=== PATIENT | female | born 1965 | race Caucasian/White ===

== ENCOUNTER → 2023-04-16 12:38 | Outpatient (BNVA) | payer OTHER, MEDICAID, SELFPAY | PROVIDERS: Visit Provider Nurse Practitioner Family | DX: U07.1 COVID-19 (principal) | CPT/HCPCS: 87426 ==

== ENCOUNTER 2024-01-04 17:25 | Inpatient (IN) | payer OTHER, BC, MEDICAID, SELFPAY ==
[2024-01-04 17:30] VITALS: BP 181/72; PULSE 80; RESP 16; TEMP 37.6; O2SAT 95; BMI 36.0
--- NOTE | 2024-01-04 18:11 | W.ED.PSYCHS ---
HPI - Psych General: Chief Complaint: Psychiatric Symptoms Stated Complaint: MHE Time Seen by Provider: 01/04/24 17:42 History of Present Illness: 58-year-old female with a history of depression who was started on medication a couple months ago who presents the emergency room today with severe depression and a complaint that she does not want to live. She does not have an exact plan. But she says she lost her home and now has no place to go and does not have a job. A social scientist friend brought her here because she was concerned that she might hurt herself. Related Data Home Medications Medication Instructions Recorded Confirmed hydrochlorothiazide 12.5 mg tablet 12.5 mg PO DAILY 09/25/23 11/20/23 lisinopril 20 mg tablet 20 mg PO DAILY 09/25/23 11/20/23 Previous Rx's Medication Instructions Recorded doxycycline hyclate 100 mg capsule 100 mg PO BID 7 days #14 caps 04/17/23 nirmatrelvir 300 mg (150 mg See Rx Instructions PO PER PKG DIR 04/17/23 x2)-ritonavir 100 mg tablet,dose #30 tabs pack (Paxlovid) prednisone 20 mg tablet 40 mg (2 x 20 mg) PO daily #10 tabs 04/17/23 escitalopram oxalate 10 mg tablet 10 mg PO DAILY #30 tabs 11/20/23 Allergies Allergy/AdvReac Type Severity Reaction Status Date / Time No Known Allergies Allergy Verified 06/21/23 14:20 Review of Systems Narrative: Constitutional symptoms: Negative except as documented in HPI. Skin symptoms: Negative except as documented in HPI. Eye symptoms: Negative except as documented in HPI. ENMT symptoms: Negative except as documented in HPI. Respiratory symptoms: Negative except as documented in HPI. Cardiovascular symptoms: Negative except as documented in HPI. Gastrointestinal symptoms: Negative except as documented in HPI. Genitourinary symptoms: Negative except as documented in HPI. Musculoskeletal symptoms: Negative except as documented in HPI. Neurologic symptoms: Negative except as documented in HPI. Psychiatric symptoms: Negative except as documented in HPI. Endocrine symptoms: Negative except as documented in HPI. [facility] PFSH: Medical History (Updated 01/04/24 @ 19:37 by Deedee Walsh MD) Psychiatric care Physical Exam Narrative: EXAM NARRATIVE: General: Alert. no acute distress Skin: Warm, dry Head: Normocephalic, atraumatic. Neck: Supple, trachea midline. Eye: Extraocular movements are intact. Ears, nose, mouth and throat: Oral mucosa moist. Cardiovascular: Regular rate and rhythm, Normal peripheral perfusion. Respiratory: Lungs are clear to auscultation, respirations are non-labored, breath sounds are equal, Symmetrical chest wall expansion. Gastrointestinal: Soft, Nontender, Non distended, Normal bowel sounds. Musculoskeletal: Normal ROM, no deformity. Neurological: Alert and oriented to person, place, time, and situation, No focal neurological deficit observed. Psychiatric: Cooperative, depressed, expresses that she wants to but does not have a plan Course Vital Signs: Vital signs: Vital Signs Temperature 99.6 F 01/04/24 17:30 Pulse Rate 80 01/04/24 17:30 Respiratory Rate 16 01/04/24 17:30 Blood Pressure 181/72 01/04/24 17:30 Pulse Oximetry 95 01/04/24 17:30 Oxygen Delivery Me thod Room Air 01/04/24 17:30 MDM - Psych Medical Decision Making Differential diagnosis: Patient with reported depression and suicidal ideation. concerns for infection, alcohol intoxication, cardiac issues or other medical problems prior to psychiatric admission. Workup: labwork, ekg ordered to evaluate the pathologies and to clear the patient medically prior to psychiatric admission EKG: Time 1912. Rate 80. Normal sinus rhythm, No ST-T changes, no ectopy, normal MS & QRS intervals, This was reviewed and interpreted by myself the ER physician at 1917 Lab Review: Laboratory results were reviewed and interpreted by myself the emergency room physician. Lab review: - Medically cleared. - EKG shows no ischemic changes. - Blood alcohol level is negative, -Tylenol and salicylate levels are negative. - Drug screen is negative -Urinalysis and drug screen are pending at admission. - BUN and creatinine are within normal limits. Consultation: I spoke with Dr. Mukherjee who is on-call for psychiatry who agrees to admission. Assessment and plan: Depression Suicidal thoughts -Admission to neuropsychiatric unit for continued evaluation and treatment. - All lab work was reviewed and interpreted personally by myself, the ER physician - Evaluation and treatment of this problem were appropriate in the emergency setting Lab Data 01/04/24 18:14 01/04/24 18:14 Laboratory Results WBC 11.69 10^3/uL (3.29-11.43) H 01/04/24 18:14 RBC 5.06 10^6/uL (3.85-5.65) 01/04/24 18:14 Hgb 15.00 g/dL (11.27-16.99) 01/04/24 18:14 Hct 46.4 % (36-47) 01/04/24 18:14 MCV 91.7 fl (85-98) 01/04/24 18:14 MCH 29.6 pg (27-33) 01/04/24 18:14 MCHC 32.3 g/dL (30-55) 01/04/24 18:14 RDW 13.4 % (12.1-15.1) 01/04/24 18:14 Plt Count 352 10^3/cmm (157-399) 01/04/24 18:14 MPV 9.6 fL (7.4-10.4) 01/04/24 18:14 Neut % (Auto) 81.9 % 01/04/24 18:14 Lymph % (Auto) 9.9 % 01/04/24 18:14 Mitchell % (Auto) 7.4 % 01/04/24 18:14 Eos % (Auto) 0.3 % 01/04/24 18:14 Baso % (Auto) 0.3 % 01/04/24 18:14 Neut # (Auto) 9.56 10^3/uL (1.8-7.7) H 01/04/24 18:14 Lymph # (Auto) 1.2 10^3/uL (0.8-4.8) 01/04/24 18:14 Mitchell # (Auto) 0.9 10^3/uL (0.2-0.9) 01/04/24 18:14 Eos # (Auto) 0.0 10^3/uL (0.0-0.8) 01/04/24 18:14 Baso # (Auto) 0.0 10^3/uL (0.0-0.1) 01/04/24 18:14 Nucleated RBC % (auto) 0 % 01/04/24 18:14 Nucleated RBCs # 0.0 /100WBC 01/04/24 18:14 Sodium 140 mmol/L (136-145) 01/04/24 18:14 Potassium 3.6 mmol/L (3.5-5.1) 01/04/24 18:14 Chloride 102 mmol/L (98-107) 01/04/24 18:14 Carbon Dioxide 26 mmol/L (22-29) 01/04/24 18:14 Anion Gap 15.6 (5-19) 01/04/24 18:14 BUN 9 mg/dL (8-23) 01/04/24 18:14 Creatinine 0.8 mg/dL (0.5-0.9) 01/04/24 18:14 GFR Calculation 73.2 mL/min (90-130) L 01/04/24 18:14 Glucose 116 mg/dL (65-115) H 01/04/24 18:14 Calculated Osmolality 290 mOsm/kg (285-295) 01/04/24 18:14 Calcium 8.4 mg/dL (8.5-10.5) L 01/04/24 18:14 Total Bilirubin 0.4 mg/dL (0.15-1.2) 01/04/24 18:14 AST 10 U/L (0-32) 01/04/24 18:14 ALT 10 U/L (0-33) 01/04/24 18:14 Alkaline Phosphatase 75 U/L (35-105) 01/04/24 18:14 Total Protein 5.9 g/dL (6.6-8.7) L 01/04/24 18:14 Albumin 4.0 g/dL (3.5-5.2) 01/04/24 18:14 Globulin 1.9 g/dL (1.3-4.6) 01/04/24 18:14 TSH 3.04 uIU/mL (0.27-4.20) 01/04/24 18:14 Salicylates 0.5 mg/dL (3-10) L 01/04/24 18:14 Acetaminophen < 5.0 ug/mL (10-30) L 01/04/24 18:14 Ethyl Alcohol < 10 mg/dL (0-10) 01/04/24 18:14 No radiology studies performed this visit Discharge Plan Discharge Patient Disposition: Admitted As Inpatient Clinical Impression: Depression, Suicidal ideation Condition: Stable Coding Level of Care Code ED Publications Inspector for Wanda Cha
[2024-01-04 18:19] LABS: Basophils % 0.3 %; Eosinophils % 0.3 %; Hematocrit 46.4 % (36-47); Lymphocytes # 1.2 10^3/uL (0.8-4.8); Lymphocytes % 9.9 %; Mean Corpuscular HGB Conc 32.3 g/dL (30-55); Mean Corpuscular Hemoglobin 29.6 pg (27-33); Mean Corpuscular Volume 91.7 fl (85-98); Mean Platelet Volume 9.6 fL (7.4-10.4); Monocytes # 0.9 10^3/uL (0.2-0.9); Monocytes % 7.4 %; Neutrophils # 9.56 10^3/uL (1.8-7.7); Neutrophils % 81.9 %; Nucleated Red Blood Cells % 0 %; Platelet Count 352 10^3/cmm (157-399); Red Blood Count 5.06 10^6/uL (3.85-5.65); Red Cell Distribution Width 13.4 % (12.1-15.1); White Blood Count 11.69 10^3/uL (3.29-11.43)
--- NOTE | 2024-01-04 18:35 | PC.NURSE ---
96 hr rights reviewed with patient @[phone] with assistance of [place] cyber security instructor Daniel. All education reviewed with patient. No verbalized questions or concerns at this time Patient copy left @bedside with patient. Patient provided a sandwich, pudding and soda.
--- NOTE | 2024-01-04 19:13 | ECG_ITS ---
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 Measurements Intervals [place] Rate: 80 P: 66 WV: 150 QRS: 54 QRSD: 90 T: 70 QT: 391 QTc: 451 Interpretive Statements SINUS RHYTHM NONSPECIFIC ST & T-WAVE ABNORMALITY Compared to ECG 03/27/2016 04:54:58 No significant changes Electronically Signed On 01-04-2024 21:59:36 CUSTODIAL OFFICER by Ayana Caro M.D. [email or web address]
[2024-01-04 19:29] LABS: Alanine Aminotransferase 10 U/L (0-33); Alkaline Phosphatase 75 U/L (35-105); Anion Gap 15.6 (5-19); Aspartate Amino Transferase 10 U/L (0-32); Blood Urea Nitrogen 9 mg/dL (8-23); Calcium 8.4 mg/dL (8.5-10.5); Carbon Dioxide 26 mmol/L (22-29); Chloride 102 mmol/L (98-107); Creatinine Clr Calc Pharmacy 92.8984; Globulin 1.9 g/dL (1.3-4.6); Glomerular Filtration Rate 73.2 mL/min (90-130); Glucose 116 mg/dL (65-115); Osmolality Calculated 290 mOsm/kg (285-295); Potassium 3.6 mmol/L (3.5-5.1); Salicylate 0.5 mg/dL (3-10); Sodium 140 mmol/L (136-145); Thyroid Stimulating Hormone 3.04 uIU/mL (0.27-4.20); Total Bilirubin 0.4 mg/dL (0.15-1.2); Total Protein 5.9 g/dL (6.6-8.7)
[2024-01-04 19:37] LABS: Acetaminophen < 5.0 ug/mL (10-30); Alcohol Level < 10 mg/dL (0-10)
[2024-01-04 20:28] VITALS: BP 179/86; PULSE 72; RESP 15; O2SAT 95
[2024-01-04 20:40] VITALS: BP 176/81; PULSE 73; RESP 18; TEMP 37.4; O2SAT 94
[2024-01-04 20:57] VITALS: BP 176/81; PULSE 73; RESP 18; TEMP 37.4; O2SAT 94
[2024-01-04 23:30] LABS: Bilirubin Urine Negative (Negative); Blood Urine 1+ (Negative); Glucose Urine UA Negative (Normal); Ketones Urine Negative (Negative); Leukocyte Esterase Urine 2+ (Negative); Nitrate Urine Negative (Negative); Protein Urine 1+ (Negative); Specific Gravity, Urine 1.022 (1.005-1.030); Urine Appearance Cloudy (CLEAR); Urine Color Yellow (Yellow); pH Urine 5.5 (5-7)
[2024-01-04 23:35] LABS: Bacteria Urine 4+ /hpf; Squamous Epithelial Cell Urine 0-5 /hpf (0-5); WBC Urine 21-50 /hpf (0-5)
[2024-01-04 23:42] LABS: Add Urine Culture? Yes; Amphetamines Screen Urine Positive (Negative); Barbiturates Screen Urine Negative (Negative); Benzodiazepines Screen Urine Negative (Negative); Cocaine Screen Urine Negative (Negative); Opiate Screen Urine Negative (Negative); PCP Screen Urine Negative (Negative); THC Screen Urine Positive (Negative)
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
[2024-01-05 06:00] VITALS: BP 175/71; PULSE 68; RESP 18; TEMP 37.7; O2SAT 94
--- NOTE | 2024-01-05 09:08 | PC.OT ---
OT EVALUATION ATTEMPTED; PATIENT IS SLEEPING SOUNDLY/SNORING.
[2024-01-05] MEDS: escitalopram 10 mg Tablet PO ×2 (09:28→16:15)
[2024-01-05] MEDS: lisinopril 20 mg Tablet PO (09:28)
[2024-01-05] MEDS: hydroCHLOROthiazide 25 mg Tablet 12.5 MG PO (09:28)
[2024-01-05] MEDS: loperamide 2 mg Capsule PO ×2 (09:34→21:35)
[2024-01-05 14:00] VITALS: BP 137/75; PULSE 62; RESP 18; TEMP 37.7; O2SAT 94
[2024-01-05 16:57] LABS: Influenza A by IFA Negative (Negative); Influenza B by IFA Negative (Negative)
[2024-01-05 18:31] LABS: Adenovirus Not Detected (NOT DETECT); Chlamydia Pneumoniae Not Detected (NOT DETECT); Coronavirus 229E,HKU1,NL63,OC4 Not Detected (NOT DETECT); Human Metapneumovirus Not Detected (NOT DETECT); Human Rhinovirus/Enterovirus Not Detected (NOT DETECT); Influenza A Not Detected (NOT DETECT); Influenza A H1 Not Detected (NOT DETECT); Influenza A H1-2009 Not Detected (NOT DETECT); Influenza A H3 Not Detected (NOT DETECT); Influenza B Not Detected (NOT DETECT); Mycoplasma Pneumoniae Not Detected (NOT DETECT); Parainfluenza Virus Type 1 Not Detected (NOT DETECT); Parainfluenza Virus Type 2 Not Detected (NOT DETECT); Parainfluenza Virus Type 3 Not Detected (NOT DETECT); Parainfluenza Virus Type 4 Not Detected (NOT DETECT); Respiratory Syncytial Virus A Not Detected (NOT DETECT); Respiratory Syncytial Virus B Not Detected (NOT DETECT); SARS-COV-2 Not Detected (NOT DETECT)
[2024-01-05] MEDS: nicotine 4 mg lozenge MUCOUS MEM (21:35)
[2024-01-05 22:00] VITALS: BP 151/72; PULSE 59; RESP 17; TEMP 36.9; O2SAT 95
[2024-01-06 06:00] VITALS: BP 138/67; PULSE 56; RESP 16; TEMP 36.7; O2SAT 98
--- NOTE | 2024-01-06 07:42 | P.NPUPN_ITS ---
Subjective NPU 2 Subjective: Patient presented today reporting that she is feeling a little better. She denied any impact in a negative way from the increase of Lexapro to 20 mg p.o. daily. We continue to discuss recovery related issues and endorsed need for us to figure out how she is going to manage sobriety moving forward. She denied any side effects to the medication. Mental Status Exam 2 MSE Comments: This is an obese white female looking older than her stated age in hospital scrubs with poor grooming and limited eye contact. She has poor dentition. No abnormal movements except for psychomotor retardation. Mostly cooperative with exam in mild to moderate distress. Speech was decreased rate and volume. Mood described as depressed, affect congruent. Thought process organized. Thought content: Patient endorsed some suicidal ideation in the form of mostly passive wish, no homicidal ideation, there were no delusions reported or noted, she denied any auditory or visual hallucinations.Marilee expresses suicidal ideation, wanting to go to sleep and not wake up. She has been feeling anxious due to lack of food, water, and electricity. She reports having nightmares and flashbacks, mostly about recent events. She denies any self-injurious behavior or hallucinations. Attention and concentration were intact and memory was mostly reliable but no more formally tested. She is alert and oriented x 3. Insight, judgment and impulse control are all impaired. Vitals/I&O/Wt Last Vital Signs Temp 98.1 F 01/06/24 06:00 Pulse 56 L 01/06/24 06:00 Resp 16 01/06/24 06:00 BP 138/67 01/06/24 06:00 Pulse Ox 98 01/06/24 06:00 O2 Del Method Room Air 01/04/24 20:43 Weight last 48 hrs Weight 104.326 kg Data NPU 01/04/24 18:14 01/04/24 18:14 A&P Assessment and plan (1) Substance dependence: (2) Suicidal ideation: (3) Major depression, recurrent: (4) PTSD (post-traumatic stress disorder): (5) Methamphetamine use disorder, severe: Plan This is a 58-year-old white female with a long history of addiction and more recent history of mental health challenges who presented with suicidal ideation. Marilee is in a state of acute psychological distress, with substantial psychosocial stressors contributing to her mental health. She is currently experiencing homelessness, unemployment, and lack of basic necessities. She has been experiencing depressive symptoms and suicidal ideation. She has been on Lexapro for a brief duration, which has recently been increased in dosage. 1. Continue current medication. Increased Lexapro to 20 mg p.o. daily. 2. Continue every 15 minute checks for safety. 3. Encourage individual, group and milieu therapies. 4. Encourage sober living treatment after discharge at the highest level care to which she is willing to commit. 5. Obtain collateral information. Involuntary Hold Information 2 96 Hour Hold: 96 Hour Involuntary Admission: Yes 96 Hour Hold Ending Date: 01/10/24 96 Hour Hold Ending Time: 18:00 Other Hold: Hold End Date: 01/10/24 Attestations NPU 2 Medical Necessity Statement*: Inpatient hospitalization is medically necessary and the clinically appropriate intervention at this time. We will monitor/initiate medications and make changes as indicated. Likely length of stay 3-5 days. Coding Level of Care Code Acute Code for [facility] Diagnoses Substance dependence F19.20 Suicidal ideation R45.851 Major depression, recurrent F33.9 PTSD (post-traumatic stress disorder) F43.10 Methamphetamine use disorder, severe F15.20
[2024-01-06] MEDS: loperamide 2 mg Capsule PO ×2 (09:55→21:45)
[2024-01-06] MEDS: lisinopril 20 mg Tablet PO (09:55)
[2024-01-06] MEDS: escitalopram 10 mg Tablet 20 MG PO (09:56)
[2024-01-06] MEDS: hydroCHLOROthiazide 25 mg Tablet 12.5 MG PO (09:58)
[2024-01-06] MEDS: nicotine 4 mg lozenge MUCOUS MEM ×2 (10:18→21:45)
[2024-01-06 14:00] VITALS: BP 137/56; PULSE 55; RESP 16; TEMP 36.8; O2SAT 93
[2024-01-06 22:00] VITALS: BP 108/45; PULSE 56; RESP 16; TEMP 37.2; O2SAT 94
[2024-01-07 06:00] VITALS: BP 132/52; PULSE 55; RESP 16; TEMP 36.9; O2SAT 94
--- NOTE | 2024-01-07 07:51 | P.NPUPN_ITS ---
Subjective NPU 2 Subjective: Patient presented today reporting that she is not really sure why she is feeling so lethargic. She reports she does have an upset stomach and reports that is why she has been lying in bed. Otherwise she reports she is tolerating the increase in her Lexapro. She continues to be somewhat resistant to talking about her addiction. Staff report her being isolative still. She denied any side effects to her medication. Mental Status Exam 2 MSE Comments: This is an obese white female looking older than her stated age in hospital scrubs with poor grooming and limited eye contact. She has poor dentition. No abnormal movements except for psychomotor retardation. Mostly cooperative with exam in mild to moderate distress. Speech was decreased rate and volume. Mood described as depressed, affect congruent and subdued. Thought process organized. Thought content: Patient endorsed some suicidal ideation in the form of mostly passive wish, no homicidal ideation, there were no delusions reported or noted, she denied any auditory or visual hallucinations.Marilee expresses suicidal ideation, wanting to go to sleep and not wake up. She has been feeling anxious due to lack of food, water, and electricity. She reports having nightmares and flashbacks, mostly about recent events. She denies any self-injurious behavior or hallucinations. Attention and concentration were intact and memory was mostly reliable but no more formally tested. She is alert and oriented x 3. Insight, judgment and impulse control are all impaired. Vitals/I&O/Wt Last Vital Signs Temp 98.4 F 01/07/24 06:00 Pulse 55 L 01/07/24 06:00 Resp 16 01/07/24 06:00 BP 132/52 01/07/24 06:00 Pulse Ox 94 01/07/24 06:00 O2 Del Method Room Air 01/04/24 20:43 01/06/24 01/07/24 01/07/24 22:59 06:59 14:59 Intake Total 480 / 480 Balance 480 / 480 Weight last 48 hrs Weight 105.37 kg Data NPU 01/04/24 18:14 01/04/24 18:14 Micro: Microbiology 01/04/24 23:20 Urine Culture - Final Urine,Clean Catch Microbiology 01/04/24 23:20 Urine,Clean Catch Urine Culture - Final A&P Assessment and plan (1) Substance dependence: (2) Suicidal ideation: (3) Major depression, recurrent: (4) PTSD (post-traumatic stress disorder): (5) Methamphetamine use disorder, severe: Plan This is a 58-year-old white female with a long history of addiction and more recent history of mental health challenges who presented with suicidal ideation. Marilee is in a state of acute psychological distress, with substantial psychosocial stressors contributing to her mental health. She is currently experiencing homelessness, unemployment, and lack of basic necessities. She has been experiencing depressive symptoms and suicidal ideation. She has been on Lexapro for a brief duration, which has recently been increased in dosage. 1. Continue current medication. Increased Lexapro to 20 mg p.o. daily. 2. Continue every 15 minute checks for safety. 3. Encourage individual, group and milieu therapies. 4. Encourage sober living treatment after discharge at the highest level care to which she is willing to commit. 5. Obtain collateral information. Involuntary Hold Information 2 96 Hour Hold: 96 Hour Involuntary Admission: Yes 96 Hour Hold Ending Date: 01/10/24 96 Hour Hold Ending Time: 18:00 Other Hold: Hold End Date: 01/10/24 Attestations NPU 2 Medical Necessity Statement*: Inpatient hospitalization is medically necessary and the clinically appropriate intervention at this time. We will monitor/initiate medications and make changes as indicated. Likely length of stay 2-4 days. Coding Level of Care Code Acute Code for [facility] Fwd Diagnoses Substance dependence F19.20 Suicidal ideation R45.851 Major depression, recurrent F33.9 PTSD (post-traumatic stress disorder) F43.10 Methamphetamine use disorder, severe F15.20
[2024-01-07] MEDS: lisinopril 20 mg Tablet PO (08:38)
[2024-01-07] MEDS: escitalopram 10 mg Tablet 20 MG PO (08:38)
[2024-01-07] MEDS: hydroCHLOROthiazide 25 mg Tablet 12.5 MG PO (08:38)
[2024-01-07] MEDS: ondansetron 4 MG Tablet PO (08:49)
[2024-01-07 14:00] VITALS: BP 125/68; PULSE 56; RESP 16; TEMP 37; O2SAT 94
[2024-01-07 21:19] VITALS: BP 139/70; PULSE 56; RESP 16; O2SAT 94
[2024-01-08 06:00] VITALS: BP 167/82; PULSE 53; RESP 16; O2SAT 95
[2024-01-08] MEDS: hydroCHLOROthiazide 25 mg Tablet 12.5 MG PO (08:32)
[2024-01-08] MEDS: escitalopram 10 mg Tablet 20 MG PO (08:32)
[2024-01-08] MEDS: lisinopril 20 mg Tablet PO (08:32)
[2024-01-08] MEDS: loperamide 2 mg Capsule PO (08:48)
[2024-01-08 14:00] VITALS: BP 121/69; PULSE 86; RESP 16; TEMP 36.6; O2SAT 98
--- NOTE | 2024-01-08 16:41 | PC.NURSE ---
Patient's friend, who is on her HIPAA form, talked with this RN about her concerns for Marilee. She stated she believes Juhi has been utilizing methamphetamine and that she knows for sure that she is using marijuana. However, she believes Juhi has been having increased memory issues and will forget having conversations and repeat them as if she had never talked about them before. Her friend disclosed that Juhi's mother and maternal grandmother both were diagnosed with dementia, and the grandmother has since passed. 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 The friend expressed her concerns for Juhi living by herself. She says juhi was living in public housing and that all she had to do to keep it was to pay the electric bill. Apparently Juhi gave plasma, got enough money for her electric bill, but then chose to send the money to a man online.
[2024-01-08 20:09] VITALS: BP 169/52; PULSE 59; RESP 17; TEMP 37.1; O2SAT 93
--- NOTE | 2024-01-08 20:59 | P.NPUPN_ITS ---
Subjective NPU 2 Subjective: Patient presented today reporting that she is doing fine. However she continues to be fairly isolative and staying in her bed per staff reports and direct observation. She reports that she is feeling kind of crappy but tends to downplay symptoms and focus on wanting to go home. Attempted to have a meaningful discussion about her addiction and the role it likely is playing in her symptoms but she was not seeming open to that interaction. She denied any side effects to her medication. Mental Status Exam 2 MSE Comments: This is an obese white female looking older than her stated age in hospital scrubs with poor grooming and limited eye contact. She has poor dentition. No abnormal movements except for psychomotor retardation. Mostly cooperative with exam in mild to moderate distress. Speech was decreased rate and volume. Mood described as depressed, affect congruent and subdued. Thought process organized. Thought content: Patient endorsed some suicidal ideation in the form of mostly passive wish, no homicidal ideation, there were no delusions reported or noted, she denied any auditory or visual hallucinations.Marilee expresses suicidal ideation, wanting to go to sleep and not wake up. She has been feeling anxious due to lack of food, water, and electricity. She reports having nightmares and flashbacks, mostly about recent events. She denies any self-injurious behavior or hallucinations. Attention and concentration were intact and memory was mostly reliable but no more formally tested. She is alert and oriented x 3. Insight, judgment and impulse control are all impaired. Vitals/I&O/Wt Last Vital Signs Temp 98.8 F 01/08/24 20:09 Pulse 59 L 01/08/24 20:09 Resp 17 01/08/24 20:09 BP 169/52 01/08/24 20:09 Pulse Ox 93 01/08/24 20:09 O2 Del Method Room Air 01/08/24 20:09 Weight last 48 hrs Weight 105.37 kg Data NPU 01/04/24 18:14 01/04/24 18:14 A&P Assessment and plan (1) Substance dependence: (2) Suicidal ideation: (3) Major depression, recurrent: (4) PTSD (post-traumatic stress disorder): (5) Methamphetamine use disorder, severe: Plan This is a 58-year-old white female with a long history of addiction and more recent history of mental health challenges who presented with suicidal ideation. Marilee is in a state of acute psychological distress, with substantial psychosocial stressors contributing to her mental health. She is currently experiencing homelessness, unemployment, and lack of basic necessities. She has been experiencing depressive symptoms and suicidal ideation. She has been on Lexapro for a brief duration, which has recently been increased in dosage. 1. Continue current medication. Increased Lexapro to 20 mg p.o. daily. 2. Continue every 15 minute checks for safety. 3. Encourage individual, group and milieu therapies. 4. Encourage sober living treatment after discharge at the highest level care to which she is willing to commit. 5. Obtain collateral information. Involuntary Hold Information 2 96 Hour Hold: 96 Hour Involuntary Admission: Yes 96 Hour Hold Ending Date: 01/10/24 96 Hour Hold Ending Time: 18:00 Other Hold: Hold End Date: 01/10/24 Attestations NPU 2 Medical Necessity Statement*: Inpatient hospitalization is medically necessary and the clinically appropriate intervention at this time. We will monitor/initiate medications and make changes as indicated. Likely length of stay 2-4 days. Coding Level of Care Code Acute Code for [facility] Fwd Diagnoses Substance dependence F19.20 Suicidal ideation R45.851 Major depression, recurrent F33.9 PTSD (post-traumatic stress disorder) F43.10 Methamphetamine use disorder, severe F15.20
[2024-01-09 06:00] VITALS: BP 160/73; PULSE 54; RESP 18; TEMP 37; O2SAT 94
[2024-01-09] MEDS: lisinopril 20 mg Tablet PO (09:16)
[2024-01-09] MEDS: hydroCHLOROthiazide 25 mg Tablet 12.5 MG PO (09:16)
[2024-01-09] MEDS: nicotine 4 mg lozenge MUCOUS MEM (09:16)
[2024-01-09] MEDS: escitalopram 10 mg Tablet 20 MG PO (09:16)
[2024-01-09] MEDS: ondansetron 4 MG Tablet PO (13:40)
[2024-01-09] MEDS: loperamide 2 mg Capsule PO (13:40)
[2024-01-09 13:45] VITALS: BP 163/78; PULSE 58; RESP 16; TEMP 36.9; O2SAT 95
--- NOTE | 2024-01-09 17:43 | P.NPUPN_ITS ---
Subjective NPU 2 Subjective: Patient presented today reporting that she is doing okay. She continues to be isolative per staff reports and direct observation. She spends a lot of time in her bed. She reports that she has been working with the social work team for possible residential options for discharge given the fact that she is homeless. Shelters have been part of the conversation but also looking at other possible options. She denied any side effects of the medication. Mental Status Exam 2 MSE Comments: This is an obese white female looking older than her stated age in hospital scrubs with poor grooming and limited eye contact. She has poor dentition. No abnormal movements except for psychomotor retardation. Mostly cooperative with exam in mild to moderate distress. Speech was decreased rate and volume. Mood described as better I guess, affect remained looking sad and subdued. Thought process organized. Thought content: Patient endorsed some suicidal ideation in the form of mostly passive wish, no homicidal ideation, there were no delusions reported or noted, she denied any auditory or visual hallucinations.Marilee expresses suicidal ideation, wanting to go to sleep and not wake up. She has been feeling anxious due to lack of food, water, and electricity. She reports having nightmares and flashbacks, mostly about recent events. She denies any self-injurious behavior or hallucinations. Attention and concentration were intact and memory was mostly reliable but no more formally tested. She is alert and oriented x 3. Insight, judgment and impulse control are all impaired. Vitals/I&O/Wt Last Vital Signs Temp 98.4 F 01/09/24 13:45 Pulse 58 L 01/09/24 13:45 Resp 16 01/09/24 13:45 BP 163/78 01/09/24 13:45 Pulse Ox 95 01/09/24 13:45 O2 Del Method Room Air 01/09/24 13:45 Data NPU 01/04/24 18:14 01/04/24 18:14 A&P Assessment and plan (1) Substance dependence: (2) Suicidal ideation: (3) Major depression, recurrent: (4) PTSD (post-traumatic stress disorder): (5) Methamphetamine use disorder, severe: Plan This is a 58-year-old white female with a long history of addiction and more recent history of mental health challenges who presented with suicidal ideation. Marilee is in a state of acute psychological distress, with substantial psychosocial stressors contributing to her mental health. She is currently experiencing homelessness, unemployment, and lack of basic necessities. She has been experiencing depressive symptoms and suicidal ideation. She has been on Lexapro for a brief duration, which has recently been increased in dosage. 1. Continue current medication. Increased Lexapro to 20 mg p.o. daily. 2. Continue every 15 minute checks for safety. 3. Encourage individual, group and milieu therapies. 4. Encourage sober living treatment after discharge at the highest level care to which she is willing to commit. 5. Working on possible discharge options that would hopefully include addiction treatment. Involuntary Hold Information 2 96 Hour Hold: 96 Hour Involuntary Admission: Yes 96 Hour Hold Ending Date: 01/10/24 96 Hour Hold Ending Time: 18:00 Other Hold: Hold End Date: 01/10/24 Attestations NPU 2 Medical Necessity Statement*: Inpatient hospitalization is medically necessary and the clinically appropriate intervention at this time. We will monitor/initiate medications and make changes as indicated. Likely length of stay 2-4 days. Coding Level of Care Code Acute Code for [facility] Fwd Diagnoses Substance dependence F19.20 Suicidal ideation R45.851 Major depression, recurrent F33.9 PTSD (post-traumatic stress disorder) F43.10 Methamphetamine use disorder, severe F15.20
[2024-01-09 20:23] VITALS: BP 171/70; PULSE 60; RESP 18; TEMP 36.7; O2SAT 93
[2024-01-10 06:00] VITALS: BP 144/71; PULSE 54; RESP 16; TEMP 37; O2SAT 94
[2024-01-10] MEDS: lisinopril 20 mg Tablet PO (08:56)
[2024-01-10] MEDS: hydroCHLOROthiazide 25 mg Tablet 12.5 MG PO (08:56)
[2024-01-10] MEDS: escitalopram 10 mg Tablet 20 MG PO (08:56)
[2024-01-10 14:00] VITALS: BP 132/65; PULSE 58; RESP 18; TEMP 36.6; O2SAT 93
--- NOTE | 2024-01-10 15:48 | W.PM.NPUPNS ---
Subjective NPU Subjective: Patient presented today reporting that she is doing all right. She endorsed a desire to leave as soon as she can but also acknowledged the fact that she does not have a place to go. She is working with the social work team looking at options for where she might go. We discussed the importance of her having an organized plan to discharge so as to not fall back into addictive behaviors or return to the hospital because she does not have a way to survive outside of the hospital. She denied any side effects of medication. Mental Status Exam MSE Comments: This is an obese white female looking older than her stated age in hospital scrubs with poor grooming and limited eye contact. She has poor dentition. No abnormal movements except for psychomotor retardation. Mostly cooperative with exam in mild to moderate distress. Speech was decreased rate and volume. Mood described as better I guess, affect remained looking sad and subdued. Thought process organized. Thought content: Patient endorsed some suicidal ideation in the form of mostly passive wish, no homicidal ideation, there were no delusions reported or noted, she denied any auditory or visual hallucinations.Marilee expresses suicidal ideation, wanting to go to sleep and not wake up. She has been feeling anxious due to lack of food, water, and electricity. She reports having nightmares and flashbacks, mostly about recent events. She denies any self-injurious behavior or hallucinations. Attention and concentration were intact and memory was mostly reliable but no more formally tested. She is alert and oriented x 3. Insight, judgment and impulse control are all impaired. Vitals/I&O/Wt Last Vital Signs Temp 98 F 01/10/24 14:00 Pulse 58 L 01/10/24 14:00 Resp 18 01/10/24 14:00 BP 132/65 01/10/24 14:00 Pulse Ox 93 01/10/24 14:00 O2 Del Method Room Air 01/09/24 13:45 Data NPU 01/04/24 18:14 01/04/24 18:14 A&P Assessment and plan (1) Substance dependence: (2) Suicidal ideation: (3) Major depression, recurrent: (4) PTSD (post-traumatic stress disorder): (5) Methamphetamine use disorder, severe: Plan This is a 58-year-old white female with a long history of addiction and more recent history of mental health challenges who presented with suicidal ideation. Marilee is in a state of acute psychological distress, with substantial psychosocial stressors contributing to her mental health. She is currently experiencing homelessness, unemployment, and lack of basic necessities. She has been experiencing depressive symptoms and suicidal ideation. She has been on Lexapro for a brief duration, which has recently been increased in dosage. 1. Continue current medication. Increased Lexapro to 20 mg p.o. daily. 2. Continue every 15 minute checks for safety. 3. Encourage individual, group and milieu therapies. 4. Encourage sober living treatment after discharge at the highest level care to which she is willing to commit. 5. Working on possible discharge options that would hopefully include addiction treatment. Involuntary Hold Information 96 Hour Hold: 96 Hour Involuntary Admission: Yes 96 Hour Hold Ending Date: 01/10/24 96 Hour Hold Ending Time: 18:00 Other Hold: Hold End Date: 01/10/24 Attestations U Medical Necessity Statement*: Inpatient hospitalization is medically necessary and the clinically appropriate intervention at this time. We will monitor/initiate medications and make changes as indicated. Likely length of stay 1-3 days. Coding Level of Care Code Acute Code for [facility] Fwd Diagnoses Substance dependence F19.20 Suicidal ideation R45.851 Major depression, recurrent F33.9 PTSD (post-traumatic stress disorder) F43.10 Methamphetamine use disorder, severe F15.20
[2024-01-10] MEDS: ondansetron 4 MG Tablet PO (17:56)
[2024-01-10 20:11] VITALS: BP 131/54; PULSE 57; RESP 18; TEMP 36.8; O2SAT 94
[2024-01-11 06:00] VITALS: BP 125/66; PULSE 68; RESP 16; TEMP 37.2; O2SAT 96
[2024-01-11] MEDS: escitalopram 10 mg Tablet 20 MG PO (08:25)
[2024-01-11] MEDS: hydroCHLOROthiazide 25 mg Tablet 12.5 MG PO (08:26)
[2024-01-11] MEDS: lisinopril 20 mg Tablet PO (08:26)
[2024-01-11] MEDS: OLANZapine 5 mg ODT PO (12:35)
[2024-01-11 14:00] VITALS: BP 107/51; PULSE 51; RESP 18; TEMP 37.1; O2SAT 93
[2024-01-11] MEDS: nicotine 4 mg lozenge MUCOUS MEM (14:55)
--- NOTE | 2024-01-11 17:17 | P.NPUPN_ITS ---
Subjective NPU 2 Subjective: Patient presented today feeling very frustrated about the 21-day hold extension. We had a lengthy conversation about the purpose of the extension. We discussed her meeting with [facility] tomorrow and that we are just trying to make sure that we have no situation where she is not really here in the hospital when they make their decision. She endorsed that she understood what she was still tearful. She denied any problems with her medications or any side effects of the medication. Mental Status Exam 2 MSE Comments: This is an obese white female looking older than her stated age in hospital scrubs with poor grooming and limited eye contact. She has poor dentition. No abnormal movements except for psychomotor retardation. Mostly cooperative with exam in mild to moderate distress. Speech was decreased rate and volume. Mood described as better I guess, affect remained looking sad and subdued. Thought process organized. Thought content: Patient endorsed some suicidal ideation in the form of mostly passive wish, no homicidal ideation, there were no delusions reported or noted, she denied any auditory or visual hallucinations.Marilee expresses suicidal ideation, wanting to go to sleep and not wake up. She has been feeling anxious due to lack of food, water, and electricity. She reports having nightmares and flashbacks, mostly about recent events. She denies any self-injurious behavior or hallucinations. Attention and concentration were intact and memory was mostly reliable but no more formally tested. She is alert and oriented x 3. Insight, judgment and impulse control are all impaired. Vitals/I&O/Wt Last Vital Signs Temp 98.8 F 01/11/24 14:00 Pulse 51 L 01/11/24 14:00 Resp 18 01/11/24 14:00 BP 107/51 01/11/24 14:00 Pulse Ox 93 01/11/24 14:00 O2 Del Method Room Air 01/11/24 14:00 Data NPU 01/04/24 18:14 01/04/24 18:14 A&P Assessment and plan (1) Substance dependence: (2) Suicidal ideation: (3) Major depression, recurrent: (4) PTSD (post-traumatic stress disorder): (5) Methamphetamine use disorder, severe: Plan This is a 58-year-old white female with a long history of addiction and more recent history of mental health challenges who presented with suicidal ideation. Marilee is in a state of acute psychological distress, with substantial psychosocial stressors contributing to her mental health. She is currently experiencing homelessness, unemployment, and lack of basic necessities. She has been experiencing depressive symptoms and suicidal ideation. She has been on Lexapro for a brief duration, which has recently been increased in dosage. 1. Continue current medication. Increased Lexapro to 20 mg p.o. daily. 2. Continue every 15 minute checks for safety. 3. Encourage individual, group and milieu therapies. 4. Encourage sober living treatment after discharge at the highest level care to which she is willing to commit. 5. Working on possible discharge options that would hopefully include addiction treatment. [facility] to come and interview tomorrow. Involuntary Hold Information 2 96 Hour Hold: 96 Hour Involuntary Admission: Yes 96 Hour Hold Ending Date: 01/10/24 96 Hour Hold Ending Time: 18:00 Other Hold: Hold End Date: 01/10/24 Attestations NPU 2 Medical Necessity Statement*: Inpatient hospitalization is medically necessary and the clinically appropriate intervention at this time. We will monitor/initiate medications and make changes as indicated. Likely length of stay 1-2 days. Coding Level of Care Code Acute Code for [facility] Fwd Diagnoses Substance dependence F19.20 Suicidal ideation R45.851 Major depression, recurrent F33.9 PTSD (post-traumatic stress disorder) F43.10 Methamphetamine use disorder, severe F15.20
[2024-01-11 19:38] VITALS: BP 114/49; PULSE 51; RESP 18; TEMP 36.7; O2SAT 95
[2024-01-11 21:55] VITALS: BP 114/49; PULSE 51; RESP 18; TEMP 36.7; O2SAT 95
[2024-01-12 06:00] VITALS: BP 116/49; PULSE 60; RESP 16; TEMP 37.2; O2SAT 95
[2024-01-12] MEDS: hydroCHLOROthiazide 25 mg Tablet 12.5 MG PO (08:24)
[2024-01-12] MEDS: lisinopril 20 mg Tablet PO (08:24)
[2024-01-12] MEDS: escitalopram 10 mg Tablet 20 MG PO (08:24)
[2024-01-12 11:31] VITALS: BP 116/49; PULSE 60; RESP 16; TEMP 37.2; O2SAT 95
--- NOTE | 2024-01-12 11:36 | W.PM.NPUDCS ---
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 Squamous Epith Cells 0-5 /hpf (0-5) 01/04/24 23:20 Amorphous Sediment Not Reportable 01/04/24 23:20 Urine Bacteria 4+ /hpf (NONE) H 01/04/24 23:20 Hyaline Casts 3.30 /lpf 01/04/24 23:20 Salicylates 0.5 mg/dL (3-10) L 01/04/24 18:14 Urine Opiates Scre en Negative ng/mL (N egative) 01/04/24 23:20 Acetaminophen < 5.0 ug/mL (10-3 0) L 01/04/24 18:14 Ur Barbiturates Sc reen Negative ng/mL (N egative) 01/04/24 23:20 Ur Phencyclidine S crn Negative ng/mL (N egative) 01/04/24 23:20 Ur Amphetamines Sc reen Positive ng/mL (N egative) H 01/04/24 23:20 U Benzodiazepines Scrn Negative ng/mL (N egative) 01/04/24 23:20 Urine Cocaine Scre en Negative ng/mL (N egative) 01/04/24 23:20 U Marijuana (THC) Screen Positive ng/mL (N egative) H 01/04/24 23:20 Ethyl Alcohol < 10 mg/dL (0-10) 01/04/24 18:14 Coronavirus 229E ( PCR) Not detected (NO T DETECT) 01/05/24 16:13 Influenza Type A A g Negative (Negati ve) 01/05/24 16:13 Influenza Type B A g Negative (Negati ve) 01/05/24 16:13 SARS-CoV-2 (PCR) Not detected (NO T DETECT) 01/05/24 16:13 Vitals: Last Vital Signs Temp 98.9 F 01/12/24 11:31 Pulse 60 01/12/24 11:31 Resp 16 01/12/24 11:31 BP 116/49 01/12/24 11:31 Pulse Ox 95 01/12/24 11:31 O2 Del Method Room Air 01/12/24 06:00 Discharge Plan Discharge Patient Disposition: Home Condition: Stable Prescriptions: New escitalopram oxalate 20 mg tablet 20 mg PO DAILY 30 Days Qty: 30 1RF Continued lisinopril 20 mg tablet 20 mg PO DAILY 30 Days Qty: 30 1RF hydrochlorothiazide 12.5 mg tablet 12.5 mg PO DAILY 30 Days Qty: 30 1RF Discontinued escitalopram oxalate [Lexapro] 10 mg tablet 10 mg PO DAILY Discharge Orders: Discharge Order (Routine); Ordered 01/12/24 Ordered By: Eb Mukherjee Referrals: [facility] [Other] - 01/12/24 12:30 pm Silvina Mello MD [Physician] - Lisa Mukherjee NP [Nurse Practitioner] - 02/07/24 11:00 am (Establish care) Discharge Diet: Regular Discharge Activity: Resume usual activity Patient Instructions: Lisinopril (By mouth), Hydrochlorothiazide (By mouth), Escitalopram (By mouth), Methamphetamine Abuse, PTSD (Post Traumatic Stress Disorder) (DC), Suicide Prevention (DC), Opioid Safety Discharge Attestations NPU Time Spent in Discharge Care*: less than 30 min Specific Discharge Activities: Specific discharge activities: educating patient, discussing with manager of case management/social workers/dc planners, documenting/other paperwork and evaluating patient/reviewing data Coding Level of Care Code Acute Code for Chg Fwd Diagnoses Substance dependence F19.20 Suicidal ideation R45.851 Major depression, recurrent F33.9 PTSD (post-traumatic stress disorder) F43.10 Methamphetamine use disorder, severe F15.20
== END 2024-01-12 13:17 | disposition home or self-care (01) | DRG 885 ==
LOC: ER 19:37 → NP 19:48
PROVIDERS: Admitting Provider Psychiatry & Neurology Psychiatry; Emergency Provider Emergency Medicine; Visit Provider Psychiatry & Neurology Psychiatry
DX: F33.9 Major depressive disorder, recurrent, unspecified (principal); R45.851 Suicidal ideations; Z59.00 Homelessness unspecified; F15.20 Other stimulant dependence, uncomplicated; F43.10 Post-traumatic stress disorder, unspecified; Z59.87 Material hardship due to limited financial resources, not elsewhere classified; E66.9 Obesity, unspecified; Z68.36 Body mass index [BMI] 36.0-36.9, adult; Z59.82 Transportation insecurity; Z59.41 Food insecurity; F17.200 Nicotine dependence, unspecified, uncomplicated
CPT/HCPCS: 80053; 80306; 80307; 81001; 84443; 85025; 87086; 87635; 87804; 93005; 97150; 97165; 97167; 99285; Q0162

== ENCOUNTER 2024-03-18 16:43 | Emergency (ER) | payer OTHER, BC, MEDICAID, SELFPAY ==
[2024-03-18] VITALS (9 sets, daily range): BP systolic 159–190; BP diastolic 58–78; PULSE 70–81; RESP 18; TEMP 36.9; O2SAT 89–94; BMI 31.3
--- NOTE | 2024-03-18 16:51 | XRR_ITS ---
PROCEDURE INFORMATION: Exam: XR Chest Exam date and time: 03/18/2024 4:52 PM Age: 58 years old Clinical indication: Cough TECHNIQUE: Imaging protocol: Radiologic exam of the chest. Views: 1 view. COMPARISON: No relevant prior studies available. FINDINGS: Lungs: No focal consolidation. Pleural spaces: No evidence of pneumothorax. No evidence of pleural effusion. Heart/Mediastinum: Cardiomediastinal silhouette is within normal limits. Bones/joints: No evidence of acute osseous abnormality. XR/XR chest 1V portable [id number] IMPRESSION: 1. No acute cardiopulmonary abnormality.
[2024-03-18 17:48] LABS: Basophils % 0.7 %; Eosinophils % 0.2 %; Hematocrit 41.4 % (36-47); Lymphocytes # 0.6 10^3/uL (0.8-4.8); Lymphocytes % 9.6 %; Mean Corpuscular HGB Conc 32.1 g/dL (30-55); Mean Corpuscular Hemoglobin 28.7 pg (27-33); Mean Corpuscular Volume 89.2 fl (85-98); Mean Platelet Volume 9.7 fL (7.4-10.4); Monocytes # 0.5 10^3/uL (0.2-0.9); Monocytes % 7.8 %; Neutrophils # 4.97 10^3/uL (1.8-7.7); Nucleated Red Blood Cells % 0 %; Platelet Count 298 10^3/cmm (157-399); Red Blood Count 4.64 10^6/uL (3.85-5.65); Red Cell Distribution Width 13.3 % (12.1-15.1); White Blood Count 6.13 10^3/uL (3.29-11.43)
[2024-03-18 18:01] LABS: Alanine Aminotransferase 94 U/L (0-33); Albumin Level 4.2 g/dL (3.5-5.2); Alkaline Phosphatase 72 U/L (35-105); Anion Gap 13.5 (5-19); Aspartate Amino Transferase 63 U/L (0-32); Blood Urea Nitrogen 11 mg/dL (8-23); Calcium 8.6 mg/dL (8.5-10.5); Carbon Dioxide 28 mmol/L (22-29); Chloride 102 mmol/L (98-107); Creatinine Clr Calc Pharmacy 98.8256; Globulin 2.7 g/dL (1.3-4.6); Glomerular Filtration Rate 85.4 mL/min (90-130); Glucose 108 mg/dL (65-115); Osmolality Calculated 290 mOsm/kg (285-295); Potassium 3.5 mmol/L (3.5-5.1); Sodium 140 mmol/L (136-145); Total Bilirubin 0.3 mg/dL (0.15-1.2); Total Protein 6.9 g/dL (6.6-8.7)
--- NOTE | 2024-03-18 18:14 | ED_ITS ---
HPI - URI/Sore Throat 2 General: Chief Complaint: Upper Respiratory Infection Stated Complaint: cough, cold chills Time Seen by Provider: 03/18/24 18:02 Source: patient Mode of arrival: ambulatory Limitations: no limitations History of Present Illness: Patient is a 58-year-old female presenting to the emergency department complaining of upper respiratory symptoms for the past 2 days. Reports positive sick contact exposure at work, unknown if flu or other virus. She is reporting a dry cough, feeling short of breath, body aches, and chest pain on inspiration. Does not use oxygen at home, no history of asthma or COPD. She is not running any fevers, no abdominal pain, no nausea/vomiting/diarrhea. She does note that recently she did have a stomach virus as well but has since gotten over this, states that this feels different. She has been alternating ibuprofen and Tylenol. She also notes a history of high blood pressure, states that she takes lisinopril and hydrochlorothiazide. Noted to be hypertensive 189 systolic at time of examination. MD elicited complaint: cough Onset (ago): day(s) (2) Consistency: constant Able to tolerate fluids by mouth: Yes Context: sick contacts Associated symptoms: Reports fever(s); Deny abdominal pain, chills, chest pain, diarrhea, ear or mastoid pain, headache(s), nausea or vomiting Treatments prior to arrival: acetaminophen and ibuprofen Related Data Previous Rx's Medication Instructions Recorded escitalopram oxalate 20 mg tablet 20 mg PO DAILY 30 days #30 tabs 01/12/24 hydrochlorothiazide 12.5 mg tablet 12.5 mg PO DAILY 30 days #30 tabs 01/12/24 lisinopril 20 mg tablet 20 mg PO DAILY 30 days #30 tabs 01/12/24 oseltamivir 75 mg capsule (Tamiflu) 75 mg PO BID 5 days #10 caps 03/18/24 Allergies Allergy/AdvReac Type Severity Reaction Status Date / Time No Known Allergies Allergy Verified 03/18/24 17:02 Review of Systems 2 General: Reports: 10 or more systems reviewed and unremarkable except in HPI and below Const: Reports: fever(s) and body aches; Denies: chills or fatigue Eyes: Denies: change in vision ENMT: Denies: throat pain, ear or mastoid pain or nasal discharge Card: Denies: chest pain, palpitations, swelling of feet/ankles or lightheadedness Resp: Reports: dyspnea, non-productive cough and pain on inspiration; Denies: productive cough or wheezing GI: Denies: abdominal pain, nausea, vomiting, diarrhea or constipation : Denies: flank pain, difficulty voiding, dysuria or urinary frequency Musc: Denies: neck pain, back pain or joint pain Skin/Breast: Denies: rash Neuro: Denies: headache(s), numbness in extremities or weakness in extremities PFSH ED 2 PFSH: Medical History Depression Psychiatric care Physical Exam 2 Const: COMMON NORMALS: no acute distress, patient oriented x3 and no limitations GENERAL APPEARANCE: cooperative, comfortable and well developed ORIENTATION/CONSCIOUSNESS: Yes awake, Yes oriented to person, Yes oriented to place and Yes oriented to time OTHER: Mildly lethargic HENMT: COMMON NORMALS: normocephalic, atraumatic, hearing grossly normal bilaterally and moist oral mucous membranes HEAD & SCALP: normocephalic and atraumatic Eye: COMMON NORMALS: Equal, round and reactive pupils present, EOMs intact bilaterally and conjunctivae normal CONJUNCTIVA: Yes conjunctivae normal P UPIL: Yes Equal, round and reactive pupils present Neck/C-Spine: COMMON NORMALS: full ROM, supple and no JVD Resp: COMMON NORMALS: normal respiratory effort, No retractions and No use of accessory muscles EFFORT & INSPECTION: Yes Actively coughing and Yes audible wheezes AUSCULTATION: wheezes expiratory wheezes and throughout Cardio: COMMON NORMALS: no JVD, regular rate, regular rhythm, No clicks present (Cardio), No murmurs present (Cardio) and No rub (Cardio) RATE: r egular rate RHYTHM: regular rhythm GI: COMMON NORMALS: Normal to inspection, nondistended, normoactive bowel sounds present, Soft to palpation and non-tender AUSCULTATION: Yes normoactive bowel sounds PALPATION: Yes Soft to palpation RECTAL EXAM: d eferred Extremity: COMMON NORMALS: normal to inspection, full ROM and capillary refill normal Neuro: COMMON NORMALS: patient oriented x3, moves all extremities, no focal motor deficits and no sensory deficits noted SENSORIUM/ORIENTATION: Yes oriented to person, Yes oriented to place and Yes oriented to time Psych: COMMON NORMALS: mental status grossly normal and Normal thought process present THOUGHT PROCESS: Normal thought process present Skin: COMMON NORMALS: no rashes or lesions noted GENERAL SKIN EXAM: no rashes or lesions noted Course 2 Vital Signs: Vital signs: Vital Signs Temperature 98.4 F 03/18/24 16:57 Pulse Rate 76 03/18/24 20:22 Respiratory Rate 18 03/18/24 20:17 Blood Pressure 190/70 03/18/24 20:00 Pulse Oximetry 90 03/18/24 20:17 Oxygen Delivery Me thod Room Air 03/18/24 20:17 MDM - URI/Sore Throat Medical Decision Making Patient presented with couple of days of respiratory symptoms. History of hypertension, she had stated her blood pressure normally runs 180 systolic despite being on lisinopril hydrochlorothiazide. She was concerned that her blood pressure was 159 systolic at triage. X-ray unremarkable for any signs of pneumonia or other cardio process. Her lab work was unremarkable aside from flu swab being positive for flu A. Being that she is under 72 hours, we can go ahead and start her on Tamiflu. She did have some mild wheezing diffusely on exam, she notes significant improvement of her breathing symptoms after DuoNeb treatment, and requests 1 more prior to going home. May be a small element of COPD, told her to follow-up with primary care for pulmonary function tests and further evaluation here, will send albuterol inhaler to pharmacy along with the Tamiflu. Informed her to return with any new or worsening, she agrees. Lab Data 03/18/24 17:37 03/18/24 17:37 Radiology Impressions Chest X-Ray 03/18/24 16:51 IMPRESSION: 1. No acute cardiopulmonary abnormality. Laboratory Results WBC 6.13 10^3/uL (3.29-11.43) 03/18/24 17:37 RBC 4.64 10^6/uL (3.85-5.65) 03/18/24 17:37 Hgb 13.30 g/dL (11.27-16.99) 03/18/24 17:37 Hct 41.4 % (36-47) 03/18/24 17:37 MCV 89.2 fl (85-98) 03/18/24 17:37 MCH 28.7 pg (27-33) 03/18/24 17:37 MCHC 32.1 g/dL (30-55) 03/18/24 17:37 RDW 13.3 % (12.1-15.1) 03/18/24 17:37 Plt Count 298 10^3/cmm (157-399) 03/18/24 17:37 MPV 9.7 fL (7.4-10.4) 03/18/24 17:37 Neut % (Auto) 81.0 % 03/18/24 17:37 Lymph % (Auto) 9.6 % 03/18/24 17:37 [place] % (Auto) 7.8 % 03/18/24 17:37 Eos % (Auto) 0.2 % 03/18/24 17:37 Baso % (Auto) 0.7 % 03/18/24 17:37 Neut # (Auto) 4.97 10^3/uL (1.8-7.7) 03/18/24 17:37 Lymph # (Auto) 0.6 10^3/uL (0.8-4.8) L 03/18/24 17:37 [place] # (Auto) 0.5 10^3/uL (0.2-0.9) 03/18/24 17:37 Eos # (Auto) 0.0 10^3/uL (0.0-0.8) 03/18/24 17:37 Baso # (Auto) 0.0 10^3/uL (0.0-0.1) 03/18/24 17:37 Nucleated RBC % (auto) 0 % 03/18/24 17:37 Nucleated RBCs # 0.0 /100WBC 03/18/24 17:37 Sodium 140 mmol/L (136-145) 03/18/24 17:37 Potassium 3.5 mmol/L (3.5-5.1) 03/18/24 17:37 Chloride 102 mmol/L (98-107) 03/18/24 17:37 Carbon Dioxide 28 mmol/L (22-29) 03/18/24 17:37 Anion Gap 13.5 (5-19) 03/18/24 17:37 BUN 11 mg/dL (8-23) 03/18/24 17:37 Creatinine 0.7 mg/dL (0.5-0.9) 03/18/24 17:37 GFR Calculation 85.4 mL/min (90-130) L 03/18/24 17:37 Glucose 108 mg/dL (65-115) 03/18/24 17:37 Calculated Osmolality 290 mOsm/kg (285-295) 03/18/24 17:37 Calcium 8.6 mg/dL (8.5-10.5) 03/18/24 17:37 Total Bilirubin 0.3 mg/dL (0.15-1.2) 03/18/24 17:37 AST 63 U/L (0-32) H 03/18/24 17:37 ALT 94 U/L (0-33) H 03/18/24 17:37 Alkaline Phosphatase 72 U/L (35-105) 03/18/24 17:37 Total Protein 6.9 g/dL (6.6-8.7) 03/18/24 17:37 Albumin 4.2 g/dL (3.5-5.2) 03/18/24 17:37 Globulin 2.7 g/dL (1.3-4.6) 03/18/24 17:37 Coronavirus (PCR) Negative (Negative) 03/18/24 18:52 Influenza A (PCR) Positive (Negative) 03/18/24 18:52 Influenza Type B (PCR) Negative (Negative) 03/18/24 18:52 RSV (PCR) Negative (Negative) 03/18/24 18:52 All radiology interpretation(s) finalized by discharge Discharge Plan Discharge Patient Disposition: Home Clinical Impression: Influenza A Condition: Stable Prescriptions: New oseltamivir [Tamiflu] 75 mg capsule 75 mg PO BID 5 Days Qty: 10 0RF No Action escitalopram oxalate 20 mg tablet 20 mg PO DAILY 30 Days Qty: 30 1RF lisinopril 20 mg tablet 20 mg PO DAILY 30 Days Qty: 30 1RF hydrochlorothiazide 12.5 mg tablet 12.5 mg PO DAILY 30 Days Qty: 30 1RF Discharge Orders: Discharge ED (Routine); Ordered 03/18/24 Ordered By: Aneesh Wright Patient Instructions: Influenza (ED) Activity Restrictions/Additional Instructions: Take Tamiflu as prescribed. Alternate ibuprofen and Tylenol for fevers and bodyaches. Drink plenty of fluids. Contact precaution as you have been diagnosed with influenza A. Follow-up with primary care and return with any new or worsening. Coding Level of Care Code ED Attendant Sales for Chg Fwd
[2024-03-18] MEDS: ipratropium-albuterol 3 mL Neb INHALATION ×2 (18:30→20:17)
[2024-03-18 19:35] LABS: Covid PCR NEGATIVE (Negative); Influenza A POSITIVE (Negative); Influenza B NEGATIVE (Negative); Respiratory Syncytial Virus Ce NEGATIVE (Negative)
[2024-03-18] MEDS: oseltamivir phosphate 75 mg Capsule PO (19:52)
== END 2024-03-18 20:15 | disposition home or self-care (01) ==
PROVIDERS: Emergency Medicine; Emergency Provider Physician Assistant
DX: J10.1 Influenza due to other identified influenza virus with other respiratory manifestations (principal); Z11.52 Encounter for screening for COVID-19
CPT/HCPCS: 36415; 71045; 80053; 85025; 87637; 94640; 99284

== ENCOUNTER 2024-03-19 09:12 | Emergency (ER) | payer OTHER, BC, MEDICAID, SELFPAY ==
[2024-03-19 09:22] VITALS: BP 168/94; PULSE 79; RESP 24; TEMP 36.9; O2SAT 91; BMI 31.3
--- NOTE | 2024-03-19 10:44 | ED_ITS ---
HPI - URI/Sore Throat General: Chief Complaint: Upper Respiratory Infection Stated Complaint: body ach , chest , headache / was in here yesterda Time Seen by Provider: 03/19/24 09:22 Source: patient Mode of arrival: ambulatory Limitations: no limitations History of Present Illness: Patient is a 58-year-old female presents to ED today with a complaint of chills, body aches, chest congestion/cough, headache. She was seen here in the emergency department yesterday and diagnosed with influenza A. She was given a prescription of Tamiflu which she has yet to fill. She was also given albuterol. Patient states she has not been taking her blood pressure meds because I do not feel like it . MD elicited complaint: cough, sore throat, rhinorrhea, nasal congestion and other (body aches) Onset (ago): day(s) Consistency: constant Severity: moderate Description of mucous: clear Able to tolerate fluids by mouth: Yes Exacerbating factors: nothing Relieving factors: nothing Associated symptoms: Reports chills, nasal congestion and sinus pain; Deny chest pain, diarrhea, ear or mastoid pain, headache(s) or vomiting Related Data Previous Rx's Medication Instructions Recorded escitalopram oxalate 20 mg tablet 20 mg PO DAILY 30 days #30 tabs 01/12/24 lisinopril 20 mg tablet 20 mg PO DAILY 30 days #30 tabs 01/12/24 albuterol sulfate 90 mcg/actuation 1 inh inhalation Q6H PRN shortness 03/18/24 aerosol inhaler of breath or wheezing #6.7 grams oseltamivir 75 mg capsule (Tamiflu) 75 mg PO BID 5 days #10 caps 03/18/24 hydrochlorothiazide 12.5 mg tablet 12.5 mg PO DAILY 30 days #30 tabs 03/19/24 Allergies Allergy/AdvReac Type Severity Reaction Status Date / Time No Known Allergies Allergy Verified 03/18/24 17:02 Review of Systems Const: Reports: chills, body aches and change in appetite Eyes: Denies: change in vision, blurry vision, photophobia, eye discomfort, eye discharge, floaters or seeing flashes ENMT: Reports: throat pain, odynophagia, nasal discharge, nasal congestion and sinus pain; Denies: ear or mastoid pain Card: Denies: chest pain Resp: Reports: non-productive cough and chest congestion; Denies: dyspnea, wheezing or hemoptysis GI: Denies: vomiting or diarrhea : Denies: dysuria Skin/Breast: Denies: rash Neuro: Denies: headache(s) or dizziness PFSH ED PFSH: Medical History Depression Psychiatric care Physical Exam Const: COMMON NORMALS: no acute distress, average body habitus, patient oriented x3, no limitations, alert and well nourished GENERAL APPEARANCE: cooperative HENMT: COMMON NORMALS: normocephalic, atraumatic, hearing grossly normal bilaterally, external ears normal, EAC's normal, TM's normal bilaterally, Normal external nose present, Normal nasal mucous membranes and turbinates present, moist oral mucous membranes and oropharynx normal HEAD & SCALP: normocephalic and atraumatic FACE & SINUS: normal facial exam and sinuses nontender NOSE: Normal external nose present and Normal nasal mucous membranes and turbinates present EXTERNAL EAR: Yes external ears normal EXTERNAL AUDITORY CANAL: EAC's normal TYMPANIC MEMBRANE: TM's normal bilaterally THROAT: posterior oropharynx normal, tonsils normal and uvula midline Eye: COMMON NORMALS: Equal, round and reactive pupils present, EOMs intact bilaterally and conjunctivae normal CONJUNCTIVA: Yes conjunctivae normal PUPIL: Yes Equal, round and reactive pupils present Neck/C-Spine: COMMON NORMALS: no lymphadenopathy Resp: COMMON NORMALS: normal respiratory effort and clear to auscultation bilaterally AUSCULTATION: clear to auscultation bilaterally Cardio: COMMON NORMALS: regular rate and regular rhythm RATE: regular rate RHYTHM: regular rhythm GI: COMMON NORMALS: Normal to inspection, nondistended, normoactive bowel sounds present, Soft to palpation and non-tender PALPATION: Yes Soft to palpation Neuro: COMMON NORMALS: patient oriented x3 SENSORIUM/ORIENTATION: Yes alert Course Vital Signs: Vital signs: Vital Signs Temperature 98.5 F 03/19/24 09:22 Pulse Rate 79 03/19/24 09:22 Respiratory Rate 24 H 03/19/24 09:22 Blood Pressure 168/94 03/19/24 09:22 Pulse Oximetry 91 03/19/24 09:22 Oxygen Delivery Me thod Room Air 03/19/24 09:22 MDM - URI/Sore Throat Medical Decision Making Patient has signs and symptoms consistent with her influenza A diagnosis. Yesterday she had blood work that was unremarkable. Her CXR was unremarkable. These do not require repeat today. She may fill her Tamiflu although she has had symptoms for at least 72 hours and she is unlikely to get much benefit from this but she is eager to try. Discussed continued conservative therapies at home. Differential Diagnosis Likely influenza Medical Records I reviewed the patient's medical records. No radiology studies performed this visit Discharge Plan Discharge Patient Disposition: Home Clinical Impression: Influenza A Condition: Stable Prescriptions: Continued hydrochlorothiazide 12.5 mg tablet 12.5 mg PO DAILY 30 Days Qty: 30 0RF No Action escitalopram oxalate 20 mg tablet 20 mg PO DAILY 30 Days Qty: 30 1RF lisinopril 20 mg tablet 20 mg PO DAILY 30 Days Qty: 30 1RF oseltamivir [Tamiflu] 75 mg capsule 75 mg PO BID 5 Days Qty: 10 0RF albuterol sulfate 90 mcg/actuation HFA aerosol inhaler 1 inh inhalation Q6H PRN (Reason: shortness of breath or wheezing) Qty: 6.7 0RF Discharge Orders: Discharge ED (Routine); Ordered 03/19/24 Ordered By: Niurka Oswald Patient Instructions: Influenza (DC) Activity Restrictions/Additional Instructions: As we discussed, continue to take Tylenol and/or Ibuprofen to help with fevers and bodyaches. Lots of rest and hydration. I will refill your hydrochlorothiazide at the dosing that we had listed on your chart. Please keep a blood pressure log and follow-up with your primary care provider. Coding Level of Care Code ED Learning And Development Manager for Wanda Cha
== END 2024-03-19 11:29 | disposition home or self-care (01) ==
PROVIDERS: Emergency Provider Physician Assistant
DX: J10.1 Influenza due to other identified influenza virus with other respiratory manifestations (principal)
CPT/HCPCS: 99282

== ENCOUNTER 2024-03-25 09:24 | Emergency (ER) | payer OTHER, BC, MEDICAID, SELFPAY ==
[2024-03-25 09:26] VITALS: BP 211/88; PULSE 56; RESP 18; TEMP 36.4; O2SAT 93; BMI 31.3
--- NOTE | 2024-03-25 09:28 | ECG_ITS ---
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 Measurements Intervals [place] Rate: 56 P: 0 ND: 0 QRS: 80 QRSD: 89 T: 77 QT: 481 QTc: 466 Interpretive Statements SUPRAVENTRICULAR BRADYCARDIA MODERATE ST DEPRESSION [0.05+ mV ST DEPRESSION] PROLONGED QT INTERVAL Compared to ECG 01/04/2024 19:13:11 ST (T wave) deviation now present Prolonged QT interval now present Sinus rhythm no longer present T-wave abnormality no longer present Electronically Signed On 03-28-2024 12:45:57 TOPOGRAPHICAL ENGINEER by Foreign Guzman M.D. [email or web address]
--- NOTE | 2024-03-25 09:33 | XR_ITS ---
WS: [id number] Exam: XR chest 1V portable [id number] Date/Time of Exam: 03/25/2024 9:36 AM Reason For Exam: shortness of breath, ride side pain Comparison 03/18/2024. Lungs are clear and fully inflated. Normal cardiomediastinal silhouette. Regional bony structures paige ear normal. No pleural effusion. XR/XR chest 1V portable [id number] IMPRESSION: 1. No acute cardiopulmonary finding.
--- NOTE | 2024-03-25 09:39 | PC.PHAR ---
patient just finished a round of tamiflu
--- NOTE | 2024-03-25 09:41 | ED_ITS ---
Documented by User: ALL Koehler 03/25/24 10:31 HPI - SOB/Dyspnea General: Chief Complaint: Shortness of Breath/Dyspnea Stated Complaint: sob, side pain Time Seen by Provider: 03/25/24 09:26 Source: patient Mode of arrival: ambulatory Limitations: no limitations History of Present Illness: HPI Narrative: Patient is a 58-year-old female who presents the emergency department complaining of shortness of breath for the past 3 days. She was seen here a week ago, was diagnosed with influenza A. She is [facility] a [facility], states she was feeling better after discharge. Shortness of breath started up soon after. She has had similar episodes of this, has albuterol inhaler that she uses as needed but she ran out of this. Also arrives hypertensive blood pressure 211/88 and states that she normally takes lisinopril but is also out of this. When I ask her who her primary care is she states I do not know. She does not know who prescribes her medications. She is reporting right lateral chest wall pain from coughing. She denies any production with her cough. No fever, palpitations, syncopal episodes, abdominal pain, or other symptoms to report at this time. During time of examination her SpO2 is 95% on room air. Denies known history of COPD or asthma. MD elicited complaint: shortness of breath Onset (ago): day(s) (3) Context: recent illness Timing: progressively worsening Severity: similar to previous episodes Exacerbating factors: exertion, movement and coughing Relieving factors: nothing Known history of: other (Influenza A) Associated symptoms: Reports chest pain (Right lateral); Deny abdominal pain, fever(s), lightheadedness, nausea, palpitations or vomiting Treatment prior to arrival: bronchodilator Related Data Previous Rx's Medication Instructions Recorded escitalopram oxalate 20 mg tablet 20 mg PO DAILY 30 days #30 tabs 01/12/24 lisinopril 20 mg tablet 20 mg PO DAILY 30 days #30 tabs 01/12/24 albuterol sulfate 90 mcg/actuation 1 inh inhalation Q6H PRN shortness 03/18/24 aerosol inhaler of breath or wheezing #6.7 grams hydrochlorothiazide 12.5 mg tablet 12.5 mg PO DAILY 30 days #30 tabs 03/19/24 albuterol sulfate 90 mcg/actuation 1 inh inhalation Q6H PRN shortness 03/25/24 aerosol inhaler of breath or wheezing #6.7 grams lisinopril 20 mg tablet 20 mg PO DAILY #30 tabs 03/25/24 prednisone 20 mg tablet 40 mg (2 x 20 mg) PO ONCE 5 days 03/25/24 #10 tabs Allergies Allergy/AdvReac Type Severity Reaction Status Date / Time No Known Allergies Allergy Verified 03/18/24 17:02 Review of Systems General: Reports: 10 or more systems reviewed and unremarkable except in HPI and below Const: Denies: fever(s), chills or fatigue Eyes: Denies: change in vision ENMT: Denies: throat pain, ear or mastoid pain or nasal discharge Card: Reports: chest pain (Right lateral); Denies: palpitations, edema, swelling of feet/ankles or lightheadedness Resp: Reports: dyspnea, non-productive cough and wheezing GI: Denies: abdominal pain, nausea, vomiting, diarrhea or constipation : Denies: flank pain, difficulty voiding, dysuria or urinary frequency Musc: Denies: neck pain, back pain or joint pain Skin/Breast: Denies: rash Neuro: Denies: headache(s), numbness in extremities or weakness in extremities PFSH ED PFSH: Medical History Depression Psychiatric care Physical Exam Const: COMMON NORMALS: patient oriented x3 GENERAL APPEARANCE: cooperative ORIENTATION/CONSCIOUSNESS: Yes awake OTHER: Mild respiratory distress noted HENMT: COMMON NORMALS: normocephalic, atraumatic and moist oral mucous mem branes HEAD & SCALP: normocephalic and atraumatic Eye: COMMON NORMALS: EOMs intact bilaterally and conjunctivae normal CONJUNCTIVA: Yes conjunctivae normal Neck/C-Spine: COMMON NORMALS: full ROM and no JVD Chest: COMMONS NORMALS: normal inspection of the chest OTHER: Tenderness to right lateral chest wall Resp: EFFORT & INSPECTION: Yes able to speak in complete sentences, Yes labored and Yes audible wheezes AUSCULTATION: rhonchi throughout Cardio: COMMON NORMALS: no JVD, regular rate, regular rhythm, S1 normal heart sound present, S2 normal heart sound present, No gallops present (Cardio), No murmurs present (Cardio) and No rub (Cardio) RATE: regular rate RHYTHM: regular rhythm HEART SOUNDS: S1 normal heart sound present and S2 normal heart sound present GI: COMMON NORMALS: Normal to inspection, nondistended, normoactive bowel sounds present, Soft to palpation and non-tender PALPATION: Yes Soft to palpation Extremity: COMMON NORMALS: normal to inspection, full ROM and no pedal edema Neuro: COMMON NORMALS: patient oriented x3, moves all extremities, no focal motor deficits and no sensory deficits noted Skin: COMMON NORMALS: no rashes or lesions noted GENERAL SKIN EXAM: no rashes or lesions noted Course Vital Signs: Vital signs: Vital Signs Temperature 97.5 F L 03/25/24 09:26 Pulse Rate 57 L 03/25/24 10:40 Respiratory Rate 16 03/25/24 10:11 Blood Pressure 164/62 03/25/24 10:40 Pulse Oximetry 91 03/25/24 10:40 Oxygen Delivery Me thod Room Air 03/25/24 10:11 MDM - SOB/Dyspnea Medical Decision Making Patient had presented requesting a breathing treatment, recently was diagnosed with influenza. Blood pressure elevated greater than 200 systolic, she had reported to me that she is homeless and has not had a refill on her medications as she does not have a primary care provider to refill them. There was diffuse rhonchi on exam, she was audibly wheezing. Heart rate has been less than 60 throughout ED stay, reviewing previous vitals she does appear to have heart rate ranging from 50 to 70 bpm. EKG was obtained and reviewed with doc, no significant change from previous other than decrease in heart rate. Hydralazine was given for the blood pressure, upon discharge systolic was 170/80. After breathing treatment she states that she felt much better. She had reported some right lateral chest wall pain, I suspect pleuritic type of pain as it was only exacerbated by the coughing and deep breathing, was not present at rest and has been there constantly since onset of her symptoms. I have low suspicion for acute coronary syndrome, I do suspect component of asthma or potentially COPD and will refer her for outpatient follow-up with primary care so that she can have her medications refilled and for any further evaluation needs to be done. This could also be residual coughing and shortness of breath from her recent influenza diagnosis. She is comfortable with discharging home at this time, I laid out strict return precautions with any recurrence of her shortness of breath or worsening chest pain, she states she will return in this case. Lab Data Labs/Radiology: Radiology Impressions Chest X-Ray 03/25/24 09:33 IMPRESSION: 1. No acute cardiopulmonary finding. All radiology interpretation(s) finalized by discharge Discharge Plan Discharge Patient Disposition: Home Clinical Impression: Shortness of breath, Influenza A Condition: Stable Prescriptions: New albuterol sulfate 90 mcg/actuation HFA aerosol inhaler 1 inh inhalation Q6H PRN (Reason: shortness of breath or wheezing) Qty: 6.7 0RF lisinopril 20 mg tablet 20 mg PO DAILY Qty: 30 0RF prednisone 20 mg tablet 40 mg PO ONCE 5 Days Qty: 10 0RF No Action escitalopram oxalate 20 mg tablet 20 mg PO DAILY 30 Days Qty: 30 1RF lisinopril 20 mg tablet 20 mg PO DAILY 30 Days Qty: 30 1RF hydrochlorothiazide 12.5 mg tablet 12.5 mg PO DAILY 30 Days Qty: 30 0RF albuterol sulfate 90 mcg/actuation HFA aerosol inhaler 1 inh inhalation Q6H PRN (Reason: shortness of breath or wheezing) Qty: 6.7 0RF Discharge Orders: Discharge ED (Routine); Ordered 03/25/24 Ordered By: Aneesh Wright Patient Instructions: Shortness of Breath (ED) Activity Restrictions/Additional Instructions: Follow-up with primary care as we discussed for further evaluation. Albuterol inhaler as needed, steroids as prescribed. Continue taking your lisinopril. Please return with any recurrence of shortness of breath, worsening chest pain, or other symptoms that you have. Please see attached patient instructions for further education. Coding Level of Care Code ED Claim Investigator for [facility] Documented by User: Real Barrow DO 03/25/24 16:49 HPI - SOB/Dyspnea General: Chief Complaint: Shortness of Breath/Dyspnea Stated Complaint: sob, side pain Time Seen by Provider: 03/25/24 09:26 Related Data Previous Rx's Medication Instructions Recorded escitalopram oxalate 20 mg tablet 20 mg PO DAILY 30 days #30 tabs 01/12/24 lisinopril 20 mg tablet 20 mg PO DAILY 30 days #30 tabs 01/12/24 albuterol sulfate 90 mcg/actuation 1 inh inhalation Q6H PRN shortness 03/18/24 aerosol inhaler of breath or wheezing #6.7 grams hydrochlorothiazide 12.5 mg tablet 12.5 mg PO DAILY 30 days #30 tabs 03/19/24 albuterol sulfate 90 mcg/actuation 1 inh inhalation Q6H PRN shortness 03/25/24 aerosol inhaler of breath or wheezing #6.7 grams lisinopril 20 mg tablet 20 mg PO DAILY #30 tabs 03/25/24 prednisone 20 mg tablet 40 mg (2 x 20 mg) PO ONCE 5 days 03/25/24 #10 tabs Allergies Allergy/AdvReac Type Severity Reaction Status Date / Time No Known Allergies Allergy Verified 03/18/24 17:02 [facility] ED PFSH: Medical History Depression Psychiatric care Course Vital Signs: Vital signs: Vital Signs Temperature 97.5 F L 03/25/24 09:26 Pulse Rate 57 L 03/25/24 10:40 Respiratory Rate 16 03/25/24 10:11 Blood Pressure 164/62 03/25/24 10:40 Pulse Oximetry 91 03/25/24 10:40 Oxygen Delivery Me thod Room Air 03/25/24 10:11 MDM - SOB/Dyspnea Medical Decision Making Patient had presented requesting a breathing treatment, recently was diagnosed with influenza. Blood pressure elevated greater than 200 systolic, she had reported to me that she is homeless and has not had a refill on her medications as she does not have a primary care provider to refill them. There was diffuse rhonchi on exam, she was audibly wheezing. Heart rate has been less than 60 throughout ED stay, reviewing previous vitals she does appear to have heart rate ranging from 50 to 70 bpm. EKG was obtained and reviewed with doc, no significant change from previous other than decrease in heart rate. Hydralazine was given for the blood pressure, upon discharge systolic was 170/80. After breathing treatment she states that she felt much better. She had reported some right lateral chest wall pain, I suspect pleuritic type of pain as it was only exacerbated by the coughing and deep breathing, was not present at rest and has been there constantly since onset of her symptoms. I have low suspicion for acute coronary syndrome, I do suspect component of asthma or potentially COPD and will refer her for outpatient follow-up with primary care so that she can have her medications refilled and for any further evaluation needs to be done. This could also be residual coughing and shortness of breath from her recent influenza diagnosis. She is comfortable with discharging home at this time, I laid out strict return precautions with any recurrence of her shortness of breath or worsening chest pain, she states she will return in this case. Chart reviewed and patient discussed with midlevel. Agree with assessment and plan. Lab Data Labs/Radiology: Radiology Impressions Chest X-Ray 03/25/24 09:33 IMPRESSION: 1. No acute cardiopulmonary finding. Discharge Plan Discharge Patient Disposition: Home Clinical Impression: Shortness of breath, Influenza A Condition: Stable Prescriptions: New albuterol sulfate 90 mcg/actuation HFA aerosol inhaler 1 inh inhalation Q6H PRN (Reason: shortness of breath or wheezing) Qty: 6.7 0RF lisinopril 20 mg tablet 20 mg PO DAILY Qty: 30 0RF prednisone 20 mg tablet 40 mg PO ONCE 5 Days Qty: 10 0RF No Action escitalopram oxalate 20 mg tablet 20 mg PO DAILY 30 Days Qty: 30 1RF lisinopril 20 mg tablet 20 mg PO DAILY 30 Days Qty: 30 1RF hydrochlorothiazide 12.5 mg tablet 12.5 mg PO DAILY 30 Days Qty: 30 0RF albuterol sulfate 90 mcg/actuation HFA aerosol inhaler 1 inh inhalation Q6H PRN (Reason: shortness of breath or wheezing) Qty: 6.7 0RF Discharge Orders: Discharge ED (Routine); Ordered 03/25/24 Ordered By: Aneesh Wright Patient Instructions: Shortness of Breath (ED) Activity Restrictions/Additional Instructions: Follow-up with primary care as we discussed for further evaluation. Albuterol inhaler as needed, steroids as prescribed. Continue taking your lisinopril. Please return with any recurrence of shortness of breath, worsening chest pain, or other symptoms that you have. Please see attached patient instructions for further education. Coding Level of Care Code ED Claim Investigator for Wanda Cha
[2024-03-25] MEDS: hyDRALAzine 25 mg Tablet PO (09:44)
[2024-03-25] MEDS: ipratropium-albuterol 3 mL Neb INHALATION (10:09)
[2024-03-25 10:11] VITALS: PULSE 55; RESP 16; O2SAT 93
[2024-03-25 10:12] VITALS: PULSE 50
[2024-03-25 10:40] VITALS: BP 164/62; PULSE 57; O2SAT 91
--- NOTE | 2024-03-27 15:52 | DCPLANNER ---
Sent to Clinics
== END 2024-03-25 10:42 | disposition home or self-care (01) ==
PROVIDERS: Emergency Provider Physician Assistant
DX: R06.02 Shortness of breath (principal); J10.1 Influenza due to other identified influenza virus with other respiratory manifestations
CPT/HCPCS: 71045; 93005; 94640; 99284

== ENCOUNTER 2024-05-22 13:45 | Emergency (ER) | payer OTHER, BC, MEDICAID, SELFPAY ==
[2024-05-22 14:09] VITALS: BP 184/81; PULSE 63; RESP 16; TEMP 36.8; O2SAT 95; BMI 31.3
--- NOTE | 2024-05-22 14:51 | ED_ITS ---
HPI - Extremity Problem General: Chief complaint: Extremity Injury, Lower Stated complaint: leg pain Time Seen by Provider: 05/22/24 14:37 Source: patient Mode of arrival: EMS Limitations: no limitations History of Present Illness: 59yo female presents via EMS for evaluat ion of left buttock/hip pain that radiates into the left thigh. Patient reports it has been ongoing for the past couple of days. States that she has been sleeping on a concrete floor that she believes is making it worse. Patient also reports that she did have vomiting this morning, but believes that is related to taking lilo-[id number]-[id number] pain medications on an empty stomach. Patient denies any history of back issues, current back pain, previous neck/back surgery, groin numbness/tingling, lower extremity weakness, incontinence, any other concern at this time. Associated symptoms: Deny fever(s) Related Data Previous Rx's ?Medication ?Instructions ?Recorded escitalopram oxalate 20 mg tablet 20 mg PO DAILY 30 da ys #30 tabs 01/12/24 lisinopril 20 mg tablet 20 mg PO DAILY 30 days #30 t abs 01/12/24 albuterol sulfate 90 mcg/actuation 1 inh inhalation Q6 H PRN shortness 03/18/24 aerosol inhaler of breath or wheezing #6.7 g siobhan hydrochlorothiazide 12.5 mg tablet 12.5 mg PO DAILY 30 days #30 tabs 03/19/24 albuterol sulfate 90 mcg/actuation 1 inh inhalation Q6 H PRN shortness 03/25/24 aerosol inhaler of breath or wheezing #6.7 g siobhan lisinopril 20 mg tablet 20 mg PO DAILY #30 tabs 02/28 09/20 Allergies Allergy/AdvReac Type Severity Reaction Status Date / Time No Known Allergies Allergy Verified 03/18/24 17:02 Review of Systems Const: Denies: fever(s) or chills GI: Reports: vomiting (resolved) : Denies: difficulty voiding or oliguria Musc: Reports: extremity pain (left buttock/hip); Denies: back pain PFS ED PFSH: Medical History Depression Psychiatric care Physical Exam Const: COMMON NORMALS: no acute distress, patient oriented x3 and alert GENERAL APPEARANCE: cooperative ORIENTATION/CONSCIOUSNESS: Yes awake OTHER: Patient is sitting reclined on the stretcher no acute distress. She is able to give history with no difficulty. She is able to make position changes with no difficulty. No family is at bedside HENMT: FACE & SINUS: normal facial exam Eye: GENERAL EYE: appearance normal, both eyes and all related structures Neck/C-Spine: COMMON NORMALS: full ROM Resp: COMMON NORMALS: normal respiratory effort : COMMON NORMALS: Yes no CVA tenderness BLADDER/KIDNEY EXAM: Yes no CVA tenderness Back/Pelvis: COMMON NORMALS: no CVA tenderness, thoracic and lumbar spine normal to inspection and no thoracic nor lumbar tenderness LUMBAR SPINE/LOWER BACK: Yes lumbar ROM normal PELVIS: Yes sciatic notch tenderness on the left Neuro: COMMON NORMALS: patient oriented x3 and moves all extremities SENSORIUM/ORIENTATION: Yes alert Psych: COMMON NORMALS: cooperative Course Vital Signs: Vital signs: Vital Signs Temperature 98.2 F 05/22/24 14:09 Pulse Rate 63 05/22/24 14:09 Respiratory Rate 16 05/22/24 14:09 Blood Pressure 184/81 05/22/24 14:09 Pulse Oximetry 95 05/22/24 14:09 Oxygen Delivery Me thod Room Air 05/22/24 14:09 MDM - Extremity (Nontraumatic) Medical Decision Making 59yo female presents via EMS for evaluation of left buttock/hip pain that radiates into the left thigh. Patient reports it has been ongoing for the past couple of days. States that she has been sleeping on a concrete floor that she believes is making it worse. Patient also reports that she did have vomiting this morning, but believes that is related to taking zlhs-[id number] pain medications on an empty stomach. Patient denies any history of back issues, current back pain, previous neck/back surgery, groin numbness/tingling, lower extremity weakness, incontinence, any other concern at this time. Patient is nontoxic in appearance. Vital signs are stable. No acute concerning abnormalities noted on exam. Discussed x-ray of the lumbar spine with patient, she does not feel that is needed at this time. Discussed with patient this is likely a radicular pain. Discussed treatment with [id number] medications to help with inflammation. Patient did receive ketorolac while in the emergency department to help with her pain. Discussed range of motion exercises and continue to monitor for any worsening symptoms. Advised follow-up with primary care in about a week for recheck, sooner if needed. Return precautions provided. Patient states understanding has no further questions or concerns at this time. No radiology studies performed this visit Discharge Plan Discharge Patient Disposition: Home Clinical Impression: Left lumbar radiculopathy Condition: Stable Prescriptions: No Action escitalopram oxalate 20 mg tablet 20 mg PO DAILY 30 Days Qty: 30 1RF lisinopril 20 mg tablet 20 mg PO DAILY 30 Days Qty: 30 1RF hydrochlorothiazide 12.5 mg tablet 12.5 mg PO DAILY 30 Days Qty: 30 0RF albuterol sulfate 90 mcg/actuation HFA aerosol inhaler 1 inh inhalation Q6H PRN (Reason: shortness of breath or wheezing) Qty: 6.7 0RF lisinopril 20 mg tablet 20 mg PO DAILY Qty: 30 0RF albuterol sulfate 90 mcg/actuation HFA aerosol inhaler 1 inh inhalation Q6H PRN (Reason: shortness of breath or wheezing) Qty: 6.7 0RF Discharge Orders: Discharge ED (Routine); Ordered 05/22/24 Ordered By: Hank Rucker Discharge Diet: Usual diet Discharge Activity: Increase activity as tolerated Patient Instructions: Lumbar Radiculopathy (ED), Lower Back Exercises (ED) Activity Restrictions/Additional Instructions: The pain is likely related to inflammation of the nerve coming from your back Azqs-zpu-mqnhrlo acetaminophen and ibuprofen will help with the inflammation and with the pain Try to avoid any heavy lifting or exertional activities over the next several days See provided handout with information about lumbar radiculopathy as well as low back exercises Follow-up with primary care in about a week for recheck, sooner if needed Return to the emergency department if any rapid worsening symptoms and as needed Print Language: Kazakh Coding Level of Care Code ED Brine Plant Operator for Wanda Cha
== END 2024-05-22 15:25 | disposition home or self-care (01) ==
PROVIDERS: Emergency Provider Nurse Practitioner
DX: M54.16 Radiculopathy, lumbar region (principal)
CPT/HCPCS: 99283

== ENCOUNTER 2024-06-13 12:55 | Emergency (ER) | payer OTHER, SELFPAY ==
[2024-06-13] VITALS (7 sets, daily range): BP systolic 156–220; BP diastolic 83–101; PULSE 58–71; RESP 16; TEMP 36.8; O2SAT 94–98; BMI 31.3
[2024-06-13 14:13] LABS: Basophils % 0.5 %; Eosinophils # 0.1 10^3/uL (0.0-0.8); Hematocrit 46.3 % (36-47); Lymphocytes # 2.2 10^3/uL (0.8-4.8); Lymphocytes % 25.5 %; Mean Corpuscular HGB Conc 32.4 g/dL (30-55); Mean Corpuscular Hemoglobin 29.1 pg (27-33); Mean Corpuscular Volume 89.9 fl (85-98); Mean Platelet Volume 9.7 fL (7.4-10.4); Monocytes # 0.5 10^3/uL (0.2-0.9); Monocytes % 6.2 %; Neutrophils % 66.1 %; Nucleated Red Blood Cells % 0 %; Platelet Count 414 10^3/cmm (157-399); Red Blood Count 5.15 10^6/uL (3.85-5.65); Red Cell Distribution Width 13.4 % (12.1-15.1); White Blood Count 8.76 10^3/uL (3.29-11.43)
[2024-06-13 14:32] LABS: Alanine Aminotransferase 13 U/L (0-33); Albumin Level 4.2 g/dL (3.5-5.2); Alkaline Phosphatase 80 U/L (35-105); Anion Gap 17.1 (5-19); Aspartate Amino Transferase 13 U/L (0-32); Blood Urea Nitrogen 19 mg/dL (8-23); Calcium 8.9 mg/dL (8.5-10.5); Carbon Dioxide 22 mmol/L (22-29); Chloride 103 mmol/L (98-107); Creatinine Clr Calc Pharmacy 97.5903; Globulin 2.8 g/dL (1.3-4.6); Glomerular Filtration Rate 85.1 mL/min (90-130); Glucose 108 mg/dL (65-115); Osmolality Calculated 289 mOsm/kg (285-295); Potassium 4.1 mmol/L (3.5-5.1); Sodium 138 mmol/L (136-145); Total Bilirubin 0.4 mg/dL (0.15-1.2)
--- NOTE | 2024-06-13 14:32 | ED_ITS ---
HPI - General Adult 2 General: Chief complaint: General Medical Stated complaint: high bp Time Seen by Provider: 06/13/24 14:28 History of Present Illness: 59-year-old female with a history of hyp ertension who was at the crisis unit trying to be set up with some sort of correction as she is currently homeless. She says has been taking her lisinopril but not her hydrochlorothiazide because she is out of it. Her blood pressure was elevated so they said they could not help her until she went to the emergency room because of her blood pressure. No chest pain. No headache. No shortness of breath. No altered mental status. No focal motor deficits. Related Data Previous Rx's ?Medication ?Instructions ?Recorded escitalopram oxalate 20 mg tablet 20 mg PO DAILY 30 da ys #30 tabs 01/12/24 lisinopril 20 mg tablet 20 mg PO DAILY 30 days #30 t abs 01/12/24 hydrochlorothiazide 12.5 mg tablet 12.5 mg PO DAILY 30 days #30 tabs 03/19/24 albuterol sulfate 90 mcg/actuation 1 inh inhalation Q6 H PRN shortness 03/25/24 aerosol inhaler of breath or wheezing #6.7 g siobhan clonidine HCl 0.1 mg tablet 0.1 mg PO Q8H PRN hyperten sive 06/13/24 emergency #20 tabs hydrochlorothiazide 12.5 mg tablet 12.5 mg PO DAILY #3 0 tabs 06/13/24 lisinopril 20 mg tablet 20 mg PO DAILY #30 tabs 05/28 09/20 Allergies Allergy/AdvReac Type Severity Reaction Status Date / Time No Known Allergies Allergy Verified 03/18/24 17:02 Review of Systems 2 Narrative: Constitutional symptoms: Negative except as documented in HPI. Skin symptoms: Negative except as documented in HPI. Eye symptoms: Negative except as documented in HPI. ENMT symptoms: Negative except as documented in HPI. Respiratory symptoms: Negative except as documented in HPI. Cardiovascular symptoms: Negative except as documented in HPI. Gastrointestinal symptoms: Negative except as documented in HPI. Genitourinary symptoms: Negative except as documented in HPI. Musculoskeletal symptoms: Negative except as documented in HPI. Neurologic symptoms: Negative except as documented in HPI. Psychiatric symptoms: Negative except as documented in HPI. Endocrine symptoms: Negative except as documented in HPI. PFSH ED 2 PFSH: Medical History Depression Psychiatric care Physical Exam 2 Narrative: EXAM NARRATIVE: General: Alert, no acute distress. Skin: Warm, dry. Head: Normocephalic, atraumatic. Neck: Supple, trachea midline. Eye: Extraocular movements are intact. Ears, nose, mouth and throat: mucosa moist. Cardiovascular: Regular, Normal peripheral perfusion. Respiratory: Lungs are clear to auscultation, respirations are non-labored, breath sounds are equal, Symmetrical chest wall expansion. Gastrointestinal: Soft, Nontender, Non distended Musculoskeletal: Normal ROM, no deformity. Neurological: Alert and oriented, No focal neurological deficit observed. Psychiatric: Cooperative, appropriate mood & affect. Course 2 Vital Signs: Vital signs: Vital Signs Temperature 98.3 F 06/13/24 13:07 Pulse Rate 60 06/13/24 15:10 Respiratory Rate 16 06/13/24 13:07 Blood Pressure 176/101 06/13/24 15:26 Pulse Oximetry 95 06/13/24 15:10 Oxygen Delivery Me thod Room Air 06/13/24 14:40 MDM - General Adult Medical Decision Making Medical decision making: Differential diagnosis including but not limited to and based on the above HPI, review of systems and physical exam: Patient presents with hypertension: Essential hypertension. Stroke. acute coronary syndrome. kidney failure. congestive heart failure. anxiety Orders placed to evaluate differential diagnosis based on the above differential, HPI and physical exam EKG: Time 1441. Rate 60. Normal sinus rhythm, nonspecific ST changes, no ectopy, normal SC & QRS intervals, This was reviewed and interpreted by myself the ER physician at 1445. Lab Review: Laboratory results were reviewed and interpreted by myself the emergency room physician. No leukocytosis. No anemia. No renal failure. I reviewed the patient's medical record. Reexamination: Patient remained stable. No increased work of breathing. No altered mental status. No focal motor deficits. Assessment and plan: Hypertension ?Clonidine, hydrochlorothiazide and lisinopril in the emergency room. Also p.o. Ativan. - Discharged home - Discussed plan with patient. Answered any questions. - Evaluation and treatment of this problem were appropriate in the emergency setting. Lab Data 06/13/24 14:02 06/13/24 14:02 Laboratory Results WBC 8.76 10^3/uL (3.29-11.43) 06/13/24 14:02 RBC 5.15 10^6/uL (3.85-5.65) 06/13/24 14:02 Hgb 15.00 g/dL (11.27-16.99) 06/13/24 14:02 Hct 46.3 % (36-47) 06/13/24 14:02 MCV 89.9 fl (85-98) 06/13/24 14:02 MCH 29.1 pg (27-33) 06/13/24 14:02 MCHC 32.4 g/dL (30-55) 06/13/24 14:02 RDW 13.4 % (12.1-15.1) 06/13/24 14:02 Plt Count 414 10^3/cmm (157-399) H 06/13/24 14:02 MPV 9.7 fL (7.4-10.4) 06/13/24 14:02 Neut % (Auto) 66.1 % 06/13/24 14:02 Lymph % (Auto) 25.5 % 06/13/24 14:02 [place] % (Auto) 6.2 % 06/13/24 14:02 Eos % (Auto) 1.0 % 06/13/24 14:02 Baso % (Auto) 0.5 % 06/13/24 14:02 Neut # (Auto) 5.80 10^3/uL (1.8-7.7) 06/13/24 14:02 Lymph # (Auto) 2.2 10^3/uL (0.8-4.8) 06/13/24 14:02 [place] # (Auto) 0.5 10^3/uL (0.2-0.9) 06/13/24 14:02 Eos # (Auto) 0.1 10^3/uL (0.0-0.8) 06/13/24 14:02 Baso # (Auto) 0.0 10^3/uL (0.0-0.1) 06/13/24 14:02 Nucleated RBC % (auto) 0 % 06/13/24 14:02 Nucleated RBCs # 0.0 /100WBC 06/13/24 14:02 Sodium 138 mmol/L (136-145) 06/13/24 14:02 Potassium 4.1 mmol/L (3.5-5.1) 06/13/24 14:02 Chloride 103 mmol/L (98-107) 06/13/24 14:02 Carbon Dioxide 22 mmol/L (22-29) 06/13/24 14:02 Anion Gap 17.1 (5-19) 06/13/24 14:02 BUN 19 mg/dL (8-23) 06/13/24 14:02 Creatinine 0.7 mg/dL (0.5-0.9) 06/13/24 14:02 GFR Calculation 85.1 mL/min (90-130) L 06/13/24 14:02 Glucose 108 mg/dL (65-115) 06/13/24 14:02 Calculated Osmolality 289 mOsm/kg (285-295) 06/13/24 14:02 Calcium 8.9 mg/dL (8.5-10.5) 06/13/24 14:02 Total Bilirubin 0.4 mg/dL (0.15-1.2) 06/13/24 14:02 AST 13 U/L (0-32) 06/13/24 14:02 ALT 13 U/L (0-33) 06/13/24 14:02 Alkaline Phosphatase 80 U/L (35-105) 06/13/24 14:02 Total Protein 7.0 g/dL (6.6-8.7) 06/13/24 14:02 Albumin 4.2 g/dL (3.5-5.2) 06/13/24 14:02 Globulin 2.8 g/dL (1.3-4.6) 06/13/24 14:02 No radiology studies performed this visit Discharge Plan Discharge Patient Disposition: Home Clinical Impression: Hypertension Condition: Stable Prescriptions: New hydrochlorothiazide 12.5 mg tablet 12.5 mg PO DAILY Qty: 30 1RF lisinopril 20 mg tablet 20 mg PO DAILY Qty: 30 1RF clonidine HCl 0.1 mg tablet 0.1 mg PO Q8H PRN (Reason: hypertensive emergency) Qty: 20 0RF Rx Instructions: For Systolic >185 diastolic >100 No Action escitalopram oxalate 20 mg tablet 20 mg PO DAILY 30 Days Qty: 30 1RF lisinopril 20 mg tablet 20 mg PO DAILY 30 Days Qty: 30 1RF hydrochlorothiazide 12.5 mg tablet 12.5 mg PO DAILY 30 Days Qty: 30 0RF albuterol sulfate 90 mcg/actuation HFA aerosol inhaler 1 inh inhalation Q6H PRN (Reason: shortness of breath or wheezing) Qty: 6.7 0RF Discharge Orders: Discharge ED (Routine); Ordered 06/13/24 Ordered By: Deedee Walsh Discharge Diet: Usual diet Discharge Activity: Increase activity as tolerated Patient Instructions: Hypertension (ED), Opioid Safety, Pain Management Activity Restrictions/Additional Instructions: Your blood pressures are a bit high and will take some time to get back down into a normal range with your medications. I have called in refills for all of these and some clonidine if your blood pressure gets extremely elevated. Thank you for choosing [facility] for your healthcare needs today. Please realize this is an emergency room and that we are providing you with a medical screening exam and this may not be complete and all inclusive of all the testing and or work up that you may need to determine your ailment or severity of your illness. You have been screened and evaluated and felt safe for discharge. Health conditions do change or evolve sometimes and as such it is important that you follow up with your Primary Doctor to be re checked, 3-5 days is a general good time frame for follow up. You are always welcome to return to the ED for re assessment if your symptoms are worsening or you have new concerns Print Language: Croatian Coding Level of Care Code ED Insole Filler for Wanda Cha
--- NOTE | 2024-06-13 14:41 | ECG_ITS ---
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 Measurements Intervals [place] Rate: 60 P: 125 CO: 145 QRS: 121 QRSD: 98 T: 138 QT: 450 QTc: 451 Interpretive Statements ECTOPIC ATRIAL RHYTHM LEFT POSTERIOR FASCICULAR BLOCK [QRS AXIS > 109, INFERIOR Q] Compared to ECG 03/25/2024 09:28:19 Ectopic atrial rhythm now present Left posterior fascicular block now present ST (T wave) deviation no longer present Prolonged QT interval no longer present Electronically Signed On 06-14-2024 08:44:10 CDT by Ayana Caro M.D. [email or web address] [id number]
[2024-06-13] MEDS: cloNIDine 0.1 mg Tablet PO (15:26)
[2024-06-13] MEDS: lisinopril 20 mg Tablet PO (15:26)
[2024-06-13] MEDS: hydroCHLOROthiazide 25 mg Tablet PO (15:26)
[2024-06-13] MEDS: LORazepam 1 mg Tablet PO (15:27)
--- NOTE | 2024-06-13 15:30 | PC.NURSE ---
ASKED PT FOR URINE SAMPLE, PT STATES NOT AT THIS TIME.
== END 2024-06-13 16:25 | disposition home or self-care (01) ==
PROVIDERS: Physician Assistant; Emergency Provider Emergency Medicine
DX: I10 Essential (primary) hypertension (principal)
CPT/HCPCS: 36415; 80053; 85025; 93005; 99284; J9999

== ENCOUNTER 2024-07-10 14:41 | Emergency (ER) | payer SELFPAY ==
[2024-07-10 14:43] VITALS: BP 175/84; PULSE 69; RESP 18; TEMP 37.1; O2SAT 94
--- NOTE | 2024-07-10 14:58 | XR_ITS ---
WS: [id number] Exam: XR chest 1V portable [id number] Date/Time of Exam: 07/10/2024 3:15 PM Reason For Exam: SOB Comparison 03/25/2024. The lungs are clear and fully expanded. Mild plaque atelectasis in the LEFT base. Normal cardiomediastinal silhouette. Bony structures are unremarkable. XR/XR chest 1V portable [id number] IMPRESSION: 1. Plaque atelectasis in the LEFT base. No acute process noted.
--- NOTE | 2024-07-10 15:06 | ECG_ITS ---
[employer] 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
--- NOTE | 2024-07-10 15:51 | ED_ITS ---
HPI - Anxiety General: Chief Complaint: Anxiety Stated Complaint: Anxiety Time Seen by Provider: 07/10/24 14:44 History of Present Illness: This patient is a 59-year-old white female who presents to the emergency department after having what sounds like a panic attack. Patient states she had an episode of difficulty breathing about 2 hours prior to arrival and her blood pressure was high. Patient has been living in a homeless [facility] but routine drug screen revealed marijuana in her urine so she states she was kicked out today. This is what caused the panic attack. She was brought in by paramedics. The crisis center had contacted EMS to have her brought in for evaluation. Patient is not homicidal or suicidal. She is worried about where she is going to live. Related Data Previous Rx's ?Medication ?Instructions ?Recorded escitalopram oxalate 20 mg tablet 20 mg PO DAILY 30 da ys #30 tabs 01/12/24 lisinopril 20 mg tablet 20 mg PO DAILY 30 days #30 t abs 01/12/24 hydrochlorothiazide 12.5 mg tablet 12.5 mg PO DAILY 30 days #30 tabs 03/19/24 albuterol sulfate 90 mcg/actuation 1 inh inhalation Q6 H PRN shortness 03/25/24 aerosol inhaler of breath or wheezing #6.7 g siobhan clonidine HCl 0.1 mg tablet 0.1 mg PO Q8H PRN hyperten sive 06/13/24 emergency #20 tabs hydrochlorothiazide 12.5 mg tablet 12.5 mg PO DAILY #3 0 tabs 06/13/24 lisinopril 20 mg tablet 20 mg PO DAILY #30 tabs 05/28 09/20 Allergies Allergy/AdvReac Type Severity Reaction Status Date / Time No Known Allergies Allergy Verified 03/18/24 17:02 Review of Systems General: Reports: 10 or more systems reviewed and unremarkable except in HPI and below Resp: Reports: dyspnea PFSH ED PFSH: Medical History Depression Psychiatric care Physical Exam Const: COMMON NORMALS: no acute distress, patient oriented x3 and no limitations GENERAL APPEARANCE: cooperative and comfortable HENMT: COMMON NORMALS: normocephalic, atraumatic, Normal nasal mucous membranes and turbinates present, moist oral mucous membranes and oropharynx normal HEAD & SCALP: normal to inspection, normocephalic and atraumatic FACE & SINUS: normal facial exam NOSE: Normal nasal mucous membranes and turbinates present Eye: COMMON NORMALS: Equal, round and reactive pupils present, EOMs intact bilaterally and conjunctivae normal GENERAL EYE: appearance normal, both eyes and all related structures CONJUNCTIVA: Yes conjunctivae normal PUPIL: Yes Equal, round and reactive pupils present Neck/C-Spine: COMMON NORMALS: supple and no JVD Chest: COMMONS NORMALS: normal inspection of the chest Resp: COMMON NORMALS: normal respiratory effort and clear to auscultation bilaterally AUSCULTATION: clear to auscultation bilaterally Cardio: COMMON NORMALS: no JVD, regular rate, regular rhythm, No gallops present (Cardio), No murmurs present (Cardio) and No rub (Cardio) RATE: regular rate RHYTHM: regular rhythm GI: COMMON NORMALS: Normal to inspection, nondistended, normoactive bowel sounds present, Soft to palpation and non-tender AUSCULTATION: Yes normoactive bowel sounds PALPATION: Yes Soft to palpation : COMMON NORMALS: Yes no CVA tenderness BLADDER/KIDNEY EXAM: Yes no CVA tenderness Back/Pelvis: COMMON NORMALS: no CVA tenderness and thoracic and lumbar spine normal to inspection Extremity: COMMON NORMALS: normal to inspection Neuro: COMMON NORMALS: patient oriented x3 and CN's II-XII intact bilaterally Psych: COMMON NORMALS: mental status grossly normal, Normal thought process present, cooperative and speech normal APPEARANCE: Yes grossly normal ATTITUDE: Yes calm ACTIVITY/MOTOR BEHAVIOR: Yes appropriate eye contact SPEECH: Yes normal speech MOOD & AFFECT: Yes depressed mood THOUGHT PROCESS: Normal thought process present THOUGHT CONTENT: Yes Normal thought content present ATTENTION/CONCENTRATION: Yes attention grossly intact MEMORY/COGNITION: Yes memory grossly intact INSIGHT: Good insight present (Psych) JUDGEMENT: Good judgement present (Psych) Skin: COMMON NORMALS: no rashes or lesions noted, turgor normal and no jaundice GENERAL SKIN EXAM: no rashes or lesions noted and turgor normal Course Vital Signs: Vital signs: Vital Signs Temperature 98.7 F 07/10/24 14:43 Pulse Rate 69 07/10/24 14:43 Respiratory Rate 18 07/10/24 14:43 Blood Pressure 175/84 07/10/24 14:43 Pulse Oximetry 94 07/10/24 14:43 Oxygen Delivery Me thod Room Air 07/10/24 14:43 MDM - Anxiety Medical Decision Making EKG revealed normal sinus rhythm with no ST segment abnormalities. Chest x-ray was normal. Patient's vital signs are normal. The crisis center is currently working on trying to find a place for her to stay. Patient discharged in stable condition. Lab Data Radiology Impressions Chest X-Ray 07/10/24 14:58 IMPRESSION: 1. Plaque atelectasis in the LEFT base. No acute process noted. All radiology interpretation(s) finalized by discharge Discharge Plan Discharge Patient Disposition: Home Clinical Impression: Acute anxiety Condition: Stable Prescriptions: No Action escitalopram oxalate 20 mg tablet 20 mg PO DAILY 30 Days Qty: 30 1RF lisinopril 20 mg tablet 20 mg PO DAILY 30 Days Qty: 30 1RF hydrochlorothiazide 12.5 mg tablet 12.5 mg PO DAILY 30 Days Qty: 30 0RF albuterol sulfate 90 mcg/actuation HFA aerosol inhaler 1 inh inhalation Q6H PRN (Reason: shortness of breath or wheezing) Qty: 6.7 0RF hydrochlorothiazide 12.5 mg tablet 12.5 mg PO DAILY Qty: 30 1RF lisinopril 20 mg tablet 20 mg PO DAILY Qty: 30 1RF clonidine HCl 0.1 mg tablet 0.1 mg PO Q8H PRN (Reason: hypertensive emergency) Qty: 20 0RF Rx Instructions: For Systolic >185 diastolic >100 Discharge Orders: Discharge ED (Routine); Ordered 07/10/24 Ordered By: Eugene Calvin Patient Instructions: Anxiety (ED) Print Language: Vincentian Coding Level of Care Code ED Fireworks Assembly Supervisor for Wanda Cha
[2024-07-10 16:28] VITALS: BP 169/80; PULSE 71; O2SAT 95
== END 2024-07-10 16:32 | disposition home or self-care (01) ==
PROVIDERS: Emergency Provider Emergency Medicine
DX: F41.8 Other specified anxiety disorders (principal)
CPT/HCPCS: 71045; 93005; 99284

== ENCOUNTER 2024-11-16 15:58 | Inpatient (IN) | payer SELFPAY ==
[2024-11-16] VITALS (18 sets, daily range): BP systolic 124–159; BP diastolic 43–103; PULSE 66–77; RESP 11–29; TEMP 36.3–37.2; O2SAT 93–96; BMI 28.8
--- NOTE | 2024-11-16 15:59 | USCV_ITS ---
Kim Marilee Age: 59 Gender: F : 1965 Exam Date: 11/16/2024 16:48 Ordering Phys: Caden Perez MD Technologist: Renzo Otto [place] [facility] [place] sob BP: 152 / 71 HR: 71 Rhythm: Sinus Technical Quality: Adequate MEASUREMENTS (Male / Female) Normal Values 2D ECHO LV Diastolic Diameter PLAX 4.0 cm 4.2 - 5.9 / 3.9 - 5.3 cm IVS Diastolic Thickness 1.1 cm 0.6 - 1.0 / 0.6 - 0.9 cm IVS Systolic Thickness 1.4 cm LVPW Diastolic Thickness 1.4 cm 0.6 - 1.0 / 0.6 - 0.9 cm LVPW Systolic Thickness 1.7 cm LVOT Diameter 2.0 cm LV Ejection Fraction 2D Teich 74.6 % LV Ejection Fraction MOD 4C 73.0 % LV Ejection Fraction MOD 2C 63.1 % LV Ejection Fraction 2C AL 62.9 % LA Diameter 3.3 cm RA Systolic Volume 4C AL 33.3 ml RA Systolic Volume 4C MOD 33.0 ml LA Sys Volume AL 53.3 cm cubed LA Sys Volume Index AL 25.5 cm cubed/m squared Aorta at Sinotubular Diameter 2.3 cm IVC Diameter 1.3 cm M-MODE LA Ao Ratio MM 1.6 AV Cusp Separation MM 1.8 cm DOPPLER AV Peak Velocity 207.0 cm/s LVOT Peak Velocity 128.0 cm/s AV Area Cont Eq vti 1.6 cm squared AV Area Cont Eq pk 1.9 cm squared MV Peak Velocity 111.0 cm/s MV Area PHT 2.3 cm squared Mitral E to A Ratio 0.7 TV Peak Velocity 273.0 cm/s TR Peak Velocity 293.0 cm/s TR Peak Gradient 34.3 mmHg TR Mean Velocity 238.0 cm/s TR Mean Gradient 23.8 mmHg TR Velocity Time Integral 89.9 cm PV Peak Velocity 124.0 cm/s RV Ejection Time 0.2 s FINDINGS Left Ventricle Normal left ventricular size and systolic function, EF 73%. Mild left ventricular hypertrophy. No regional wall motion abnormalities. Grade I/IV diastolic dysfunction (abnormal relaxation filling pattern), normal to mildly elevated filling pressures. Right Ventricle The right ventricle is normal in size and function. Right Atrium The right atrium is normal in size. Left Atrium The left atrium is normal in size. Mitral Valve Thickened mitral valve. Aortic Valve Aortic valve morphology could not be delineated well. Elevated velocity across the valve Tricuspid Valve Trace tricuspid valve regurgitation. Pulmonic Valve Pulmonic valve not well visualized. Pericardium Normal pericardium without effusion. Aorta Normal ascending aorta dimension. IVC Normal inferior vena cava. CONCLUSIONS Normal left ventricular size and systolic function, EF 73%. Mild left ventricular hypertrophy. No regional wall motion abnormalities. Grade I/IV diastolic dysfunction (abnormal relaxation filling pattern), normal to mildly elevated filling pressures. Thickened mitral valve. Aortic valve morphology could not be delineated well. Elevated velocity across the valve, may suggest aortic valve sclerosis Trace tricuspid valve regurgitation. Estimated pulmonary artery peak systolic pressure of 27 mmHg There is no pericardial effusion. There are no intracardiac masses. No similar previous studies are available for comparison Dr Ayana Caro MD FACC (Electronically Signed) Final Date: 16 November 2024 18:34 S
--- NOTE | 2024-11-16 16:00 | ECG_ITS ---
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 Measurements Intervals [place] Rate: 65 P: 61 WV: 119 QRS: 32 QRSD: 93 T: 117 QT: 412 QTc: 431 Interpretive Statements SINUS RHYTHM WITH SHORT WV INTERVAL ST DEVIATION AND MODERATE T-WAVE ABNORMALITY, CONSIDER LATERAL ISCHEMIA [-0.1+ mV T-WAVE IN I/aVL/V5/V6] Compared to ECG 07/10/2024 15:06:40 Short WV interval now present Possible ischemia now present T-wave abnormality still present Electronically Signed On 11-16-2024 20:07:12 CDT by Ayana Caro M.D. [email or web address] [id number]
[2024-11-16 16:33] LABS: Estmated Average Glucose 108; Hemoglobin A1C 5.4 % (4.0-6.0)
[2024-11-16 16:34] LABS: Troponin(5th) Baseline 19 ng/L (0-10)
--- NOTE | 2024-11-16 16:49 | PC.NURSE ---
direct admit to icu 4 awake and alert no shortness of breath tearful and anxious, placed in bed to heart monitor , asking am i going to ,, reassured was [facility] of pt . 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
[2024-11-16 16:54] LABS: Cholesterol 193 mg/dL (0-200); HDL Cholesterol 40 mg/dL (60-100); Thyroid Stimulating Hormone 2.50 uIU/mL (0.27-4.20); Triglycerides 164 mg/dL (0-150)
--- NOTE | 2024-11-16 17:14 | PC.NURSE ---
scattered pills in bag of pt belongings and cigarettes with wallet ect and hot box checker put in icu locker 4
[2024-11-16] MEDS: pantoprazole 40 mg SDV IVP (17:19)
--- NOTE | 2024-11-16 18:00 | ECG_ITS ---
[facility] Test Date: 2024-11-16 Pat Name: Marilee Alvarez Department: Room: 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 Measurements Intervals [place] Rate: 69 P: 69 NC: 113 QRS: 59 QRSD: 98 T: 85 QT: 411 QTc: 440 Interpretive Statements SINUS RHYTHM WITH SHORT NC INTERVAL ST DEVIATION AND MODERATE T-WAVE ABNORMALITY, CONSIDER LATERAL ISCHEMIA [-0.1+ mV T-WAVE IN I/aVL/V5/V6] Compared to ECG 11/16/2024 16:11:00 No significant changes Electronically Signed On 11-16-2024 20:10:22 CDT by Ayana Caro M.D. [email or web address] [id number]
--- NOTE | 2024-11-16 18:22 | XRR_ITS ---
PROCEDURE INFORMATION: Exam: XR Chest Exam date and time: 11/16/2024 6:37 PM Age: 59 years old Clinical indication: Cough; Additional info: Cough; SOB TECHNIQUE: Imaging protocol: Radiologic exam of the chest. Views: 1 view. COMPARISON: CR XR chest 1V portable [id number] 07/10/2024 3:16 PM FINDINGS: Lungs: Unremarkable. No consolidation. Pleural spaces: Unremarkable. No pleural effusion. No pneumothorax. Heart/Mediastinum: Unremarkable. No cardiomegaly. Bones/joints: Unremarkable. Single-view. XR/XR chest 1V portable [id number] IMPRESSION: No acute findings.
--- NOTE | 2024-11-16 18:29 | PC.NURSE ---
pt demand iv removed from right wrist area , other staff removed . pt started yelling and screaming . dressing intact after i went to check on pt stated part of it broke off and chipped off bone , doctor here aware of status . will check pt n
[2024-11-16 18:34] LABS: Troponin 5 2HR 18.51 ng/L (0-10)
--- NOTE | 2024-11-16 18:42 | PC.NURSE ---
Dr Diamond here exam pt right iv site with ultrasound
[2024-11-16 18:47] LABS: Troponin 5 2HR Delta -0.49 ABS# (0-10)
--- NOTE | 2024-11-16 19:08 | PC.NURSE ---
no issue noted of site ,,,
[2024-11-16 19:12] LABS: Alanine Aminotransferase 14 U/L (0-33); Albumin Level 4.0 g/dL (3.5-5.2); Alkaline Phosphatase 78 U/L (35-105); Anion Gap 18.0 (5-19); Aspartate Amino Transferase 22 U/L (0-32); Blood Urea Nitrogen 25 mg/dL (8-23); Calcium 8.8 mg/dL (8.5-10.5); Carbon Dioxide 23 mmol/L (22-29); Chloride 103 mmol/L (98-107); Globulin 2.6 g/dL (1.3-4.6); Glucose 130 mg/dL (65-115); Lactate (Lactic Acid level) 3.0 mmol/L (0.5-2.2); Osmolality Calculated 298 mOsm/kg (285-295); Potassium 3.0 mmol/L (3.5-5.1); Sodium 141 mmol/L (136-145); Total Protein 6.6 g/dL (6.6-8.7)
[2024-11-16 19:13] LABS: Creatinine Clr Calc Pharmacy 59.6899
[2024-11-16 19:18] LABS: Procalcitonin 0.17 ng/mL (0-0.5)
[2024-11-16] MEDS: heparin 5,000 unit/mL INJ 1 mL 5000 UNIT SUBCUT (19:47)
--- NOTE | 2024-11-16 20:02 | P.HP_ITS ---
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 Patient's records were reviewed, and her lab diagnostics showed no acute concerning of increased troponins, D-dimers were negative therefore PE was ruled out. Chest x-ray did not show any pulmonary congestion or increased heart size therefore less likely of acute heart failure condition. EKG did not show any acute T wave elevations or any changes from the previous recorded EKGs. Upon further history taking from the patient the patient is having on and off shortness of breath from the loss 3 to 4 weeks. It is nonexertional and is not associate with orthopnea PND or any increase in lower leg swellings. Patient did not complain of chest pain chest pressure or any nausea vomiting or diarrhea. Patient is still currently smoking actively but has never been diagnosed with COPD or asthma. Of note she informed that she has been given inhalers and was admitted due to some viral pneumonia however she was unable to get her inhalers and did not use it at all in the last 2 to 3 days. Review of Systems 2 General: Reports: 10 or more systems reviewed and unremarkable except in HPI and below Medications/Allergies Home Medications ?Medication ?Instructions ?Recorded ?Confirmed ?Last Taken ?Type clonidine HCl 0.1 mg tablet 0.1 mg PO Q8H PRN hyperten sive 06/13/24 07/10/24 Unknown Rx emergency #20 tabs hydrochlorothiazide 12.5 mg tablet 12.5 mg PO DAILY #3 0 tabs 06/13/24 07/10/24 Unknown Rx lisinopril 20 mg tablet 20 mg PO DAILY #30 tabs 05/2807/10/24 Unknown Rx Allergies Allergy/AdvReac Type Severity Reaction Status Date / Time No Known Allergies Allergy Verified 03/18/24 17:02 PFSH Acute 2 PFSH: Medical History (Updated 11/16/24 @ 20:32 by Elvira Neal MD) Depression Psychiatric care Vitals/I&O/Wt Last Vital Signs Temp 97.3 F L 11/16/24 16:15 Pulse 66 11/16/24 16:31 Resp 18 11/16/24 16:31 BP 152/71 11/16/24 16:15 Pulse Ox 96 11/16/24 16:31 O2 Del Method Nasal Cannula 11/16/24 16:31 O2 Flow Rate 1 11/16/24 16:31 11/16/24 11/16/24 11/16/24 06:59 14:59 22:59 Intake Total 250 / 250 Balance 250 / 250 Weight last 48 hrs Weight 83.603 kg Physical Exam 2 Narrative: General: Alert and oriented, lying comfortably without any distress and able to speak in full sentences appears pleasant. HEENT: Normocephalic, atraumatic, grossly unremarkable exam Cardio: normal rate rhythm, normal S1-S2 without any murmurs, rubs, or gallops and JVD normal Respiratory: normal vascular breathing with bilateral mild to moderate diffuse wheezes. No coarse crackles or crepitations heard and no stridor. GI: Abdomen soft, nontender, nondistended, normoactive bowel sounds present all 4 quadrants, Neuro: intact cranial nerves motor and sensory and cerebellar/coordination function without any focal neurological deficit Behavior: Appropriate and cooperative Extremities: Adequate palpable pulses, no edema or cyanosis observed Skin: grossly unremarkable exam Data 11/16/24 17:56 A&P Assessment and plan 1. COPD exacerbation: Patient is not documented/diagnosed for COPD since patient proper healthcare maintenance and primary care physician follow-up however considering patient excessive smoking history from 3040 years for more than 2 packs and currently actively smoking 1 pack and presentation with shortness of breath from 3 to 4 weeks with wheezes and recently provided inhalers which she did not take, COPD exacerbation is the likely reason of her shortness of breath EKG, tropes and chest x-ray was independently reviewed from the previous notes Continue DuoNebs Q4 scheduled Chest x-ray Continue on azithromycin for total 3 days and ceftriaxone for 5 to 7 days Prednisone 40 mg daily for 5 days total Pro-Nasir Pulse oximeter and oxygen as per protocol Patient to be discharged and referred after stabilization to primary care physician/brine maker for pulmonary function test and management of high likely COPD 2. Shortness of breath: Rule out ACS D-dimers were negative and had admission in [facility] scanned documents reviewed therefore PE is ruled out Less likely to be ACS since her troponins and EKGs did not show remarkable changes, on the top the patient's symptomatology and presentation based on history and physical exam does not correlate with ACS Continue telemetry monitoring 3. Sepsis: High lactate, however the patient has adequate capillary refill and normal blood pressure, could be related to mild sepsis, continue hydration Patient did not voice any abdominal pain or chest pain. Clinically patient looks euvolemic Possible lactate could be secondary to albuterol 4. Hypertension: Continue lisinopril 20 mg daily Hold hydrochlorothiazide considering it is a diuretic and patient having hypokalemia 5. Left lumbar radiculopathy: Monitor for any symptoms and adequate analgesia 6. Substance dependence: Past medical history of meth use, and to monitor any signs of withdrawal 7. Major depression, recurrent: Currently stable and monitor for any symptoms Monitor for any depressive symptoms and to add antidepressant according to 8. PTSD (post-traumatic stress disorder): Past medical history of PTSD currently stable Referral at the time of discharge 9. Smoking addiction: Nicotine patch 21 mg PDMP PDMP Reviewed: Not Reviewed Attestations 2 Medical Necessity Statement*: Patient will stay more than 2 midnights for possible sepsis, COPD exacerbation and to ACS since the patient was endorsed from [facility] for further management Time Spent in Patient Care: 16 - 35 minutes (>than 50% of time sp ent in counselling and/or direct pt care on unit) . Other Attestations: Patient condition has been discussed at length with the patient/family, I have independently reviewed the chart labs imaging/diagnostics/EKG. the goals of care and code status with the patient/family/NOK/legal patient registration representative, and documented accordingly. The patient/family has been informed about the current condition and further plan of care. Agreed with the plan of care and understood without any language barrier. Every effort was made to ensure accuracy of clinical dietician. Any obvious errors or omissions should be clarified with the author of the document. Coding Level of Care Code 66551 Diagnoses COPD exacerbation J44.1 Shortness of breath R06.02 Sepsis A41.9 Hypertension I10 Left lumbar radiculopathy M54.16 Substance dependence F19.20 Major depression, recurrent F33.9 PTSD (post-traumatic stress disorder) F43.10 Smoking addiction F17.200
[2024-11-16 20:14] LABS: Magnesium 1.1 mg/dL (1.7-2.3)
[2024-11-16] MEDS: cefTRIAXone 1,000 mg SDV 1000 MG IVP (21:44)
--- NOTE | 2024-11-16 22:00 | ECG_ITS ---
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 Measurements Intervals [place] Rate: 71 P: 74 UT: 106 QRS: 59 QRSD: 92 T: 90 QT: 413 QTc: 450 Interpretive Statements SINUS RHYTHM WITH SHORT UT INTERVAL ST DEVIATION AND MODERATE T-WAVE ABNORMALITY, CONSIDER LATERAL ISCHEMIA [-0.1+ mV T-WAVE IN I/aVL/V5/V6] Compared to ECG 11/16/2024 17:56:56 No significant changes Electronically Signed On 11-16-2024 20:23:05 CDT by Ayana Caro M.D. [email or web address]
[2024-11-16] MEDS: magnesium sulfate premix 2 GM/50 ML PIGGYBACK IV (22:17)
[2024-11-16] MEDS: lidocaine 1% 5 ML in potassium chloride premix 100 ML 52.5 ML IV (22:18)
[2024-11-16 22:39] LABS: Troponin 5 6HR 20.18 ng/L (0-10); Troponin 5 6HR Delta 1.18 ng/L (0-12)
[2024-11-17] VITALS (28 sets, daily range): BP systolic 121–182; BP diastolic 54–90; PULSE 57–88; RESP 10–36; TEMP 36.3–36.9; O2SAT 90–98
[2024-11-17] MEDS: magnesium sulfate premix 2 GM/50 ML PIGGYBACK IV (00:05)
[2024-11-17 04:14] LABS: Hematocrit 40.9 % (36-47); Hemoglobin 13.20 g/dL (11.27-16.99); Mean Corpuscular HGB Conc 32.3 g/dL (30-55); Mean Corpuscular Hemoglobin 29.1 pg (27-33); Mean Corpuscular Volume 90.3 fl (85-98); Nucleated Red Blood Cells % 0 %; Platelet Count 275 10^3/cmm (157-399); Red Blood Count 4.53 10^6/uL (3.85-5.65); White Blood Count 8.13 10^3/uL (3.29-11.43)
[2024-11-17 04:16] LABS: Alanine Aminotransferase 12 U/L (0-33); Albumin Level 3.8 g/dL (3.5-5.2); Alkaline Phosphatase 76 U/L (35-105); Anion Gap 16.5 (5-19); Aspartate Amino Transferase 18 U/L (0-32); Blood Urea Nitrogen 20 mg/dL (8-23); Calcium 8.3 mg/dL (8.5-10.5); Carbon Dioxide 24 mmol/L (22-29); Chloride 106 mmol/L (98-107); Creatinine Clr Calc Pharmacy 82.0736; Globulin 2.0 g/dL (1.3-4.6); Glucose 111 mg/dL (65-115); Osmolality Calculated 297 mOsm/kg (285-295); Potassium 4.5 mmol/L (3.5-5.1); Sodium 142 mmol/L (136-145); Total Protein 5.8 g/dL (6.6-8.7)
[2024-11-17 04:19] LABS: Magnesium 3.2 mg/dL (1.7-2.3)
[2024-11-17 06:06] LABS: PCP Screen Urine Negative (Negative)
[2024-11-17] MEDS: heparin 5,000 unit/mL INJ 1 mL 5000 UNIT SUBCUT (07:53)
--- NOTE | 2024-11-17 13:19 | PM.DCS ---
Discharge Providers Date of Admission: 11/16/24 15:58 Date of Discharge: November 17, 2024 Attending Provider at Admission: Caden Perez MD Attending Provider at Discharge: Elvira Neal MD Diagnoses at Discharge Discharge Diagnosis 1. COPD exacerbation: 2. Shortness of breath: 3. Sepsis: 4. Hypertension: 5. Left lumbar radiculopathy: 6. Substance dependence: 7. Major depression, recurrent: 8. PTSD (post-traumatic stress disorder): 9. Smoking addiction: Reason for Visit Reason for Visit: Direct Admit for shortness of breath Brief History: As per the previous notes and the patient Marilee Alvarez is a 59 year old female with past medical history of excessive smoking and currently smoking 1 pack a day, past history of meth use quit last year Admitted from [facility] due to shortness of breath and possible NSTEMI which was managed with heparin infusion there and sent for further management. Hospital Course Hospital Course Patient's records were reviewed, and her lab diagnostics showed no acute concerning of increased troponins, D-dimers were negative therefore PE was ruled out. Chest x-ray did not show any pulmonary congestion or increased heart size therefore less likely of acute heart failure condition. EKG did not show any acute T wave elevations or any changes from the previous recorded EKGs. Upon further history taking from the patient the patient is having on and off shortness of breath from the last 3 to 4 weeks. It is nonexertional and is not associate with orthopnea PND or any increase in lower leg swellings. Patient did not complain of chest pain chest pressure or any nausea vomiting or diarrhea. No diaphoresis or any concerning symptoms of heart failure or acute ID Patient is still currently smoking actively but has never been diagnosed with COPD or asthma. Of note she informed that she has been given inhalers and was admitted due to some viral pneumonia however she was unable to get her inhalers and did not use it at all in the last 2 to 3 days. During her hospital stay patient troponins were sent and did not show any concerning rise. Echo was unremarkable for any regional wall motion abnormalities with EF of 73%. Patient chest x-ray did not show any signs of pneumonia or heart failure such as pulmonary venous congestion or increased heart size. The patient clinical examination and history was more suggestive of under lying COPD that was not diagnosed before. Patient managed with inhalers steroids and antibiotics. Patient was ambulated in order to check for any desaturation episodes however she did well and there was no desaturation or shortness of breath. Patient improved over 24 hours significantly and preferred to go home. general manager was informed about her social determinants and further needs. Patient provided course of antibiotics at the time of discharge with steroids and to follow-up with the underwriting internship with lung function test and the primary care physician postdischarge for further management and care. Patient condition has been discussed at length with the patient/family, I have independently reviewed the chart labs imaging/diagnostics/EKG. the goals of care and code status with the patient/family/NOK/legal textiles sales representative, and documented accordingly. The patient/family has been informed about the current condition and further plan of care. Agreed with the plan of care and understood without any language barrier. Every effort was made to ensure accuracy of nursing informatics analyst. Any obvious errors or omissions should be clarified with the author of the document. Physical Exam Narrative: General: Alert and oriented, lying comfortably without any distress and able to speak in full sentences appears pleasant. HEENT: Normocephalic, atraumatic, grossly unremarkable exam Cardio: normal rate rhythm, normal S1-S2 without any murmurs, rubs, or gallops and JVD normal Respiratory: normal vascular breathing with mild wheezes relatively improved from yesterday. No coarse crackles or crepitations heard and no stridor. GI: Abdomen soft, nontender, nondistended, normoactive bowel sounds present all 4 quadrants, Neuro: intact cranial nerves motor and sensory and cerebellar/coordination function without any focal neurological deficit Behavior: Appropriate and cooperative Extremities: Adequate palpable pulses, no edema or cyanosis observed Skin: grossly unremarkable exam Discharge Data Studies Completed and Pending Completed Studies During Hospitalization Category Date Time Status XR chest 1V portable [id number] Stat Exams 11/16/24 18:22 Completed CV. echo complete* [id number] Routine Ultrasound 11/16/24 15:59 Completed Radiology Impressions Chest X-Ray 11/16/24 18:22 IMPRESSION: No acute findings. Laboratory Results WBC 8.13 10^3/uL (3.29-11.43) 11/17/24 03:04 RBC 4.53 10^6/uL (3.85-5.65) 11/17/24 03:04 Hgb 13.20 g/dL (11.27-16.99) 11/17/24 03:04 Hct 40.9 % (36-47) 11/17/24 03:04 MCV 90.3 fl (85-98) 11/17/24 03:04 MCH 29.1 pg (27-33) 11/17/24 03:04 MCHC 32.3 g/dL (30-55) 11/17/24 03:04 RDW 13.5 % (12.1-15.1) 11/17/24 03:04 Plt Count 275 10^3/cmm (157-399) 11/17/24 03:04 MPV 10.4 fL (7.4-10.4) 11/17/24 03:04 Neut % (Auto) 66.5 % 11/17/24 03:04 Lymph % (Auto) 20.9 % 11/17/24 03:04 Henderson % (Auto) 10.2 % 11/17/24 03:04 Eos % (Auto) 1.5 % 11/17/24 03:04 Baso % (Auto) 0.5 % 11/17/24 03:04 Neut # (Auto) 5.41 10^3/uL (1.8-7.7) 11/17/24 03:04 Lymph # (Auto) 1.7 10^3/uL (0.8-4.8) 11/17/24 03:04 Henderson # (Auto) 0.8 10^3/uL (0.2-0.9) 11/17/24 03:04 Eos # (Auto) 0.1 10^3/uL (0.0-0.8) 11/17/24 03:04 Baso # (Auto) 0.0 10^3/uL (0.0-0.1) 11/17/24 03:04 Nucleated RBC % (auto) 0 % 11/17/24 03:04 Nucleated RBCs # 0.0 /100WBC 11/17/24 03:04 Sodium 142 mmol/L (136-145) 11/17/24 03:04 Potassium 4.5 mmol/L (3.5-5.1) 11/17/24 03:04 Chloride 106 mmol/L (98-107) 11/17/24 03:04 Carbon Dioxide 24 mmol/L (22-29) 11/17/24 03:04 Anion Gap 16.5 (5-19) 11/17/24 03:04 BUN 20 mg/dL (8-23) 11/17/24 03:04 Creatinine 0.8 mg/dL (0.5-0.9) 11/17/24 03:04 GFR Calculation 72.9 mL/min (90-130) L 11/17/24 03:04 Glucose 111 mg/dL (65-115) 11/17/24 03:04 Estimat Average Glucose 108 11/16/24 16:08 Hemoglobin A1c 5.4 % (4.0-6.0) 11/16/24 16:08 Calculated Osmolality 297 mOsm/kg (285-295) H 11/17/24 03:04 Lactate 3.0 mmol/L (0.5-2.2) H 11/16/24 17:56 Calcium 8.3 mg/dL (8.5-10.5) L 11/17/24 03:04 Phosphorus 3.1 mg/dL (2.5-4.5) 11/16/24 17:56 Magnesium 3.2 mg/dL (1.7-2.3) H 11/17/24 03:04 Total Bilirubin 0.2 mg/dL (0.15-1.2) 11/17/24 03:04 AST 18 U/L (0-32) 11/17/24 03:04 ALT 12 U/L (0-33) 11/17/24 03:04 Alkaline Phosphatase 76 U/L (35-105) 11/17/24 03:04 Troponin T Baseline 19 ng/L (0-10) H 11/16/24 16:08 Troponin T 120 Minute 18.51 ng/L (0-10) H 11/16/24 17:56 Delta Troponin T -0.49 ABS# (0-10) L 11/16/24 17:56 Troponin T Hi Sens 6Hr 20.18 ng/L (0-10) H 11/16/24 22:13 Troponin T Hi Sens 6Hr Delta 1.18 ng/L (0-12) 11/16/24 22:13 Total Protein 5.8 g/dL (6.6-8.7) L 11/17/24 03:04 Albumin 3.8 g/dL (3.5-5.2) 11/17/24 03:04 Globulin 2.0 g/dL (1.3-4.6) 11/17/24 03:04 Triglycerides 164 mg/dL (0-150) H 11/16/24 16:08 Cholesterol 193 mg/dL (0-200) 11/16/24 16:08 LDL Cholesterol, Calc 120 mg/dL (50-129) 11/16/24 16:08 HDL Cholesterol 40 mg/dL (60-100) L 11/16/24 16:08 LDL/HDL Ratio 3.00 RATIO (0.00-3.22) 11/16/24 16:08 Cholesterol/HDL Ratio 4.83 mg/dL (0.0-4.40) H 11/16/24 16:08 Procalcitonin 0.17 ng/mL (0-0.5) 11/16/24 17:56 TSH 2.50 uIU/mL (0.27-4.20) 11/16/24 16:08 Urine Opiates Screen Negative ng/mL (Negative) 11/17/24 05:30 Ur Barbiturates Screen Negative ng/mL (Negative) 11/17/24 05:30 Ur Phencyclidine Scrn Negative ng/mL (Negative) 11/17/24 05:30 Ur Amphetamines Screen Negative ng/mL (Negative) 11/17/24 05:30 U Benzodiazepines Scrn Negative ng/mL (Negative) 11/17/24 05:30 Urine Cocaine Screen Negative ng/mL (Negative) 11/17/24 05:30 U Marijuana (THC) Screen Positive ng/mL (Negative) H 11/17/24 05:30 Vitals Last Vital Signs Temp 97.3 F L 11/17/24 12:52 Pulse 88 11/17/24 12:52 Resp 26 H 11/17/24 12:52 BP 149/55 11/17/24 12:52 Pulse Ox 98 11/17/24 12:52 O2 Del Method Room Air 11/17/24 10:37 O2 Flow Rate 2 11/17/24 07:41 Discharge Plan Discharge Patient Disposition: Home Condition: Stable Prescriptions: New famotidine 20 mg tablet 20 mg PO DAILY Qty: 60 0RF budesonide-formoterol [Symbicort] 160-4.5 mcg/actuation HFA aerosol inhaler 1 inh inhalation BID Qty: 10.2 2RF prednisone 20 mg tablet 20 mg PO BID 7 Days Qty: 14 0RF albuterol sulfate [Ventolin HFA] 90 mcg/actuation HFA aerosol inhaler 1 inh inhalation Q6H PRN (Reason: shortness of breath or wheezing) Qty: 8.5 3RF amoxicillin-pot clavulanate [Augmentin] 500-125 mg tablet 1 tab PO Q8H 4 Days Qty: 12 0RF Continued hydrochlorothiazide 12.5 mg tablet 12.5 mg PO DAILY Qty: 30 1RF clonidine HCl 0.1 mg tablet 0.1 mg PO Q8H PRN (Reason: hypertensive emergency) Qty: 20 0RF Rx Instructions: For Systolic >185 diastolic >100 simvastatin 20 mg tablet 20 mg PO QPM lisinopril 40 mg tablet 40 mg PO DAILY Discharge Order = DC NOW: Discharge Order (Routine); Ordered 11/17/24 Ordered By: Elvira Neal Other Ambulatory Orders: Pulmonary Function Screen with Bronchodilator (Routine) Timeframe: 2 Weeks Facility: [facility] - Location: Respiratory Therapy Ordered By: Elvira Neal Referrals: Semaj Esqueda MD [Physician, Pulmonology] Referral Note: Current smoker with more than 30 to 40 packs/year history, admitted as a case of shortness of breath found to have wheezing and hyperinflated lungs. Undiagnosed COPD likely for further management Marcello Fernández MD [Physician, Family Practice] Referral Note: Patient needs healthcare maintenance, history of smoking, hypertension and likely undiagnosed COPD underlying leading to shortness of breath for further management Discharge Diet: Advance as tolerated, Cardiac and Low Salt Discharge Activity: Resume usual activity and Increase activity as tolerated Patient Instructions: Famotidine (By mouth), Albuterol (By breathing), Prednisone (By mouth), Amoxicillin (By mouth), Budesonide/Formoterol (By breathing), COPD - Emphysema, How to Stop Smoking (ED), How to Stop Smoking (DC), Sepsis (DC), Opioid Safety, Patient Portal & Camryn Instructions Discharge Attestations Time Spent in Discharge Care*: greater than 30 min Specific Discharge Activities: educating patient, educating and/or supporting family/caregiver, discussing with pcp/other providers, discussing with family service caseworker/social workers/dc planners, documenting/other paperwork and evaluating patient/reviewing data Time Spent in Smoking Cessation: 3 to 10 minutes Status at Discharge: Cognitive status at discharge: cognitively intact, Behavioral status at discharge: cooperative, Functional status at discharge: independent ambulation, Overall status at discharge: patient is back to baseline Quality Metrics Clinical Quality Measures [ No reported AMI, CVA or VTE this stay] Coding Level of Care Code 64260 Diagnoses COPD exacerbation J44.1 Shortness of breath R06.02 Sepsis A41.9 Hypertension I10 Left lumbar radiculopathy M54.16 Substance dependence F19.20 Major depression, recurrent F33.9 PTSD (post-traumatic stress disorder) F43.10 Smoking addiction F17.200
--- NOTE | 2024-11-18 08:24 | PC.OT ---
OT EVAL ORDERS RECEIVED. PATIENT D/C BEFORE EVAL COULD BE ATTEMPTED
== END 2024-11-17 12:54 | disposition home or self-care (01) | DRG 190 ==
PROVIDERS: Admitting Provider Family Medicine; Visit Provider Student in an Organized Health Care Education/Training Program
DX: J44.1 Chronic obstructive pulmonary disease with (acute) exacerbation (principal); I21.A1 Myocardial infarction type 2; E87.20 Acidosis, unspecified; F33.9 Major depressive disorder, recurrent, unspecified; I10 Essential (primary) hypertension; M54.16 Radiculopathy, lumbar region; F15.21 Other stimulant dependence, in remission; F43.10 Post-traumatic stress disorder, unspecified; F17.210 Nicotine dependence, cigarettes, uncomplicated
CPT/HCPCS: 36415; 71045; 80048; 80053; 80061; 80306; 83036; 83605; 83735; 84100; 84145; 84443; 84484; 85025; 93005; 93306; 94640; 94664; 94760; 96372; G0379; J0456; J0696; J1644; J2470; J3475; J3480; J7050; J7120; J7512; J9999

== ENCOUNTER → 2024-11-21 14:02 | Outpatient (BNVA) | payer MEDICAID, SELFPAY | PROVIDERS: Visit Provider Internal Medicine | DX: J44.1 Chronic obstructive pulmonary disease with (acute) exacerbation (principal); J44.89 Other specified chronic obstructive pulmonary disease; F17.210 Nicotine dependence, cigarettes, uncomplicated; J44.9 Chronic obstructive pulmonary disease, unspecified | CPT/HCPCS: 99204; 99496 ==

== ENCOUNTER 2025-01-03 12:05 | Outpatient (CLI) | payer MEDICAID, SELFPAY ==
[2025-01-03 12:27] VITALS: PULSE 57; RESP 18; O2SAT 97
== END 2025-01-03 12:06 | disposition home or self-care (01) ==
LOC: RT 12:07
PROVIDERS: PCP Podiatrist Foot & Ankle Surgery; Visit Provider Student in an Organized Health Care Education/Training Program
DX: J44.1 Chronic obstructive pulmonary disease with (acute) exacerbation (principal)
CPT/HCPCS: 94060; 94726; 94729; J7613